=== PATIENT | female | born 1990 | race Caucasian/White ===

== ENCOUNTER 2017-11-30 07:00 | Inpatient (IN) | payer BC ==
[2017-11-30] MEDS ORDERED: Lactated Ringers 1,000 ML IV ONE (07:36)
[2017-11-30] MEDS ORDERED: Misoprostol 200 MCG Tab PO PRN (08:02)
[2017-11-30] MEDS ORDERED: Nalbuphine 10 MG/1 ML Vial IVPUSH PRN (08:02)
[2017-11-30] MEDS ORDERED: Sodium Chloride 0.9% 2.5 ML Syringe FLUSH PRN (08:02)
[2017-11-30] MEDS ORDERED: Lidocaine 1% 50 ML MDV INJECT PRN (08:02)
[2017-11-30] MEDS ORDERED: Sodium Chloride 0.9% 10 ML Syringe FLUSH PRN (08:02)
[2017-11-30] MEDS ORDERED: Butorphanol 1 MG/ML SDV IVPUSH PRN (08:02)
[2017-11-30] MEDS ORDERED: Carboprost Tromethamine 250 MCG/1 ML Amp IM PRN (08:02)
[2017-11-30] MEDS ORDERED: Water For Irrigation,Sterile 1,000 ML Container IRR PRN (08:02)
[2017-11-30] MEDS ORDERED: Tranexamic Acid 1,000 MG in Sodium Chloride 0.9% 100 ML IV PRN (08:02)
[2017-11-30] MEDS ORDERED: Methylergonovine 0.2 MG/1 ML Amp IM PRN (08:02)
[2017-11-30] MEDS ORDERED: Oxytocin/0.9 % Sodium Chloride 30 UNIT/500 ML BAG IV SCH (08:15)
[2017-11-30 08:50] LABS: CHLORIDE,CL 103 mmol/L (98-107); SODIUM,NA 135 mmol/L (136-145)
[2017-11-30] MEDS: Lactated Ringers 1,000 ML IV SCH ×4 (09:09→13:33)
[2017-11-30] MEDS ORDERED: Ondansetron 4 MG/2 ML SDV IVPUSH PRN (10:57)
--- NOTE | 2017-11-30 11:26 | PCM.PREANE ---
Preanesthetic Assessment - Anesthesia/Transfusion/Family Hx Anesthesia History: Prior Anesthesia Without Reaction Family History of Anesthesia Reaction: No Transfusion History: No Prior Transfusion(s) - Review of Systems General: No Symptoms Pulmonary: No Symptoms Cardiovascular: No Symptoms Gastrointestinal: No Symptoms Neurological: No Symptoms Other: Reports: None - Physical Assessment Height: 5 ft 6 in Weight: 117.027 kg ASA Class: 2 Mental Status: Alert & Oriented x3 Airway Class: Mallampati = 2 Dentition: Reports: Normal Dentition Thyro-Mental Finger Breadths: 3 Mouth Opening Finger Breadths: 3 ROM/Head Extension: Full Lungs: Clear to Auscultation, Normal Respiratory Effort Cardiovascular: Regular Rate, Regular Rhythm - Lab Values: Laboratory Last Values WBC 10.23 K/uL (4.0-11.0) 11/30/17 08:17 RBC 4.01 M/uL (4.30-5.90) L 11/30/17 08:17 Hgb 12.5 g/dL (12.0-16.0) 11/30/17 08:17 Hct 36.1 % (36.0-46.0) 11/30/17 08:17 MCV 90.0 fL (80.0-98.0) 11/30/17 08:17 MCH 31.2 pg (27.0-32.0) 11/30/17 08:17 MCHC 34.6 g/dL (31.0-37.0) 11/30/17 08:17 RDW Std Deviation 46.6 fl (28.0-62.0) 11/30/17 08:17 RDW Coeff of Nova 14 % (11.0-15.0) 11/30/17 08:17 Plt Count 241 K/uL (150-400) 11/30/17 08:17 MPV 9.70 fL (7.40-12.00) 11/30/17 08:17 Nucleated RBC % 0.0 /100WBC 11/30/17 08:17 Nucleated RBCs # 0 K/uL 11/30/17 08:17 Sodium 135 mmol/L (136-145) L 11/30/17 08:17 Potassium 4.0 mmol/L (3.5-5.1) 11/30/17 08:17 Chloride 103 mmol/L (98-107) 11/30/17 08:17 Carbon Dioxide 20.8 mmol/L (21.0-32.0) L 11/30/17 08:17 BUN 6 mg/dL (7.0-18.0) L 11/30/17 08:17 Creatinine 0.6 mg/dL (0.6-1.0) 11/30/17 08:17 Est Cr Clr Drug Dosing 130.68 mL/min 11/30/17 08:17 Estimated GFR (MDRD) > 60.0 ml/min 11/30/17 08:17 Glucose 95 mg/dL (74-106) 11/30/17 08:17 Calcium 9.0 mg/dL (8.5-10.1) 11/30/17 08:17 Total Bilirubin 0.3 mg/dL (0.2-1.0) 11/30/17 08:17 AST 14 IU/L (15-37) L 11/30/17 08:17 ALT 15 IU/L (14-63) 11/30/17 08:17 Alkaline Phosphatase 135 U/L (46-116) H 11/30/17 08:17 Total Protein 6.5 g/dL (6.4-8.2) 11/30/17 08:17 Albumin 2.8 g/dL (3.4-5.0) L 11/30/17 08:17 Globulin 3.7 g/dL (2.0-3.5) H 11/30/17 08:17 Albumin/Globulin Ratio 0.8 (1.3-2.8) L 11/30/17 08:17 Urine Color YELLOW 11/30/17 08:20 Urine Appearance CLEAR 11/30/17 08:20 Urine pH 6.0 (5.0-8.0) 11/30/17 08:20 Ur Specific [place] 1.015 (1.001-1.035) 11/30/17 08:20 Urine Protein NEGATIVE mg/dL (NEGATIVE) 11/30/17 08:20 Urine Glucose (UA) NEGATIVE mg/dL (NEGATIVE) 11/30/17 08:20 Urine Ketones NEGATIVE mg/dL (NEGATIVE) 11/30/17 08:20 Urine Occult Blood NEGATIVE (NEGATIVE) 11/30/17 08:20 Urine Nitrite NEGATIVE (NEGATIVE) 11/30/17 08:20 Urine Bilirubin NEGATIVE (NEGATIVE) 11/30/17 08:20 Urine Urobilinogen 0.2 EU/dL (<2.0) 11/30/17 08:20 Ur Leukocyte Esterase NEGATIVE (NEGATIVE) 11/30/17 08:20 Blood Type O POSITIVE 11/30/17 08:17 Antibody Screen NEGATIVE 11/30/17 08:17 - Allergies Allergies/Adverse Reactions: Allergies Allergy/AdvReac Type Severity Reaction Status Date / Time No Known Allergies Allergy Verified 11/30/17 07:17 - Acknowledgements Anesthesia Type Planned: Epidural Pt an Appropriate Candidate for the Planned Anesthesia: Yes Alternatives and Risks of Anesthesia Discussed w Pt/Guardian: Yes Pt/Guardian Understands and Agrees with Anesthesia Plan: Yes PreAnesthesia Questionnaire - Past Health History Medical/Surgical History: Denies Medical/Surgical History HEENT History: Reports: Impaired Vision, Other (See Below) Other HEENT History: wears contacts Cardiovascular History: Reports: None Respiratory History: Reports: None Gastrointestinal History: Reports: GERD Genitourinary History: Reports: None 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): Musculoskeletal History: Reports: None Neurological History: Reports: None Psychiatric History: Reports: Anxiety Endocrine/Metabolic History: Reports: Obesity/BMI 30+ Hematologic History: Reports: Anemia Immunologic History: Reports: None - Past Surgical History HEENT Surgical History: Reports: Oral Surgery, Tonsillectomy, Other (See Below) Other HEENT Surgeries/Procedures: wisdom tooth extraction - SUBSTANCE USE Smoking Status *Q: Former Smoker Tobacco Use Within Last Twelve Months: No Recreational Drug Use History: No - HOME MEDS Home Medications: Home Meds Vit W-Ca,Fe,FA(<1 mg) [ Vitamins] 1 tab PO DAILY 11/30/17 [ History] - CURRENT (IN HOUSE) MEDS Current Meds: Current Medications Butorphanol Tartrate (Stadol) 1 mg IVPUSH Q1H PRN PRN Reason: Pain Last Admin: 11/30/17 11:02 Dose: 1 mg Carboprost Tromethamine (Hemabate Ds) 250 mcg IM ASDIRECTED PRN PRN Reason: Post Hemorrhage Lactated Ringer's (Ringers, Lactated) 1,000 mls @ 150 mls/hr IV ASDIRECTED [facility] Last Admin: 11/30/17 11:04 Dose: 150 mls/hr Oxytocin/Sodium Chloride (Oxytocin 30 Unit/500 Ml-Ns) 30 unit in 500 mls @ 999 mls/hr IV TITRATE [facility] Tranexamic Acid 1,000 mg/ (Sodium Chloride) 110 mls @ 660 mls/hr IV ONETIME PRN PRN Reason: Bleeding Lidocaine HCl (Xylocaine 1%) 50 ml INJECT ONETIME PRN PRN Reason: Laceration repair Methylergonovine Maleate (Methergine) 0.2 mg IM ASDIRECTED PRN PRN Reason: Post Hemorrhage Misoprostol (Cytotec) 200 mcg PO ONETIME PRN PRN Reason: Post Hemorrhage Nalbuphine HCl (Nubain) 10 mg IVPUSH Q1H PRN PRN Reason: Pain (severe 7-10) Ondansetron HCl (Zofran) 4 mg IVPUSH Q4H PRN PRN Reason: Nausea/Vomiting Sodium Chloride (Saline Flush) 10 ml FLUSH ASDIRECTED PRN PRN Reason: Keep Vein Open Sodium Chloride (Saline Flush) 2.5 ml FLUSH ASDIRECTED PRN PRN Reason: Keep Vein Open Sterile Water (Sterile Water For Irrigation) 1,000 ml IRR ASDIRECTED PRN PRN Reason: delivery Discontinued Medications Lactated Ringer's (Ringers, Lactated) 1,000 mls @ 999 mls/hr IV .BOLUS ONE Stop: 11/30/17 08:36 Last Admin: 11/30/17 07:45 Dose: 999 mls/hr
[2017-11-30] MEDS ORDERED: Acetaminophen 500 MG Tab PO ONE (15:08)
[2017-11-30] MEDS ORDERED: Docusate Sodium 100 MG Cap PO PRN (18:53)
[2017-11-30] MEDS ORDERED: oxyCODONE 5 MG Tab PO PRN (18:53)
[2017-11-30] MEDS ORDERED: Lanolin 100% Cream 7 GM Tube TOP PRN (18:53)
[2017-11-30] MEDS ORDERED: Benzocaine/Menthol 20%-0.5% Spray 78 GM Cannister TOP PRN (18:53)
[2017-11-30] MEDS ORDERED: Witch Hazel Medicated Pads 40/Jar TOP PRN (18:53)
[2017-11-30] MEDS ORDERED: Bisacodyl 10 MG Supp RECTAL PRN (18:53)
[2017-11-30] MEDS ORDERED: Aluminum Hydroxide/Magnesium Hydroxide/Simethicone Susp 30 ML Cup PO PRN (18:53)
[2017-11-30] MEDS ORDERED: Ibuprofen 400 MG Tab PO PRN (18:53)
[2017-11-30] MEDS ORDERED: Acetaminophen 500 MG Tab PO PRN (18:53)
--- NOTE | 2017-11-30 18:58 | PCM.DEL ---
L & D Note - General Info Date of Service: 11/30/17 Mother's Due Date: 11/29/17 - Delivery Note Labor: Spontaneous Delivery Outcome: Livebirth Infant Delivery Method: Spontaneous Vaginal Delivery-Single Presentation: Left Occiput Anterior (ELIZABETH) Nuchal Cord: None Anesthesia Type: Epidural Amniotic Fluid Description: Clear Episiotomy Type: None Laceration: None Placenta: Intact, Spontaneous Cord: 3 Vessels [place]: Bulb Syringe Provider: Megan Haney Score 1 min: 9 Score 5 min: 9 - General Info Date of Service: 11/30/17 - Patient Data Weight - Most Recent: 117.027 kg Lab Results Last 24 Hours: Laboratory Results - last 24 hr 11/30/17 11/30/17 11/30/17 Range/Units 08:17 08:17 08:17 WBC 10.23 (4.0-11.0) K/uL RBC 4.01 L (4.30-5.90) M/uL Hgb 12.5 (12.0-16.0) g/dL Hct 36.1 (36.0-46.0) % MCV 90.0 (80.0-98.0) fL MCH 31.2 (27.0-32.0) pg MCHC 34.6 (31.0-37.0) g/dL RDW Std Deviation 46.6 (28.0-62.0) fl RDW Coeff of Nova 14 (11.0-15.0) % Plt Count 241 (150-400) K/uL MPV 9.70 (7.40-12.00) fL Nucleated RBC % 0.0 /100WBC Nucleated RBCs # 0 K/uL Sodium 135 L (136-145) mmol/L Potassium 4.0 (3.5-5.1) mmol/L Chloride 103 (98-107) mmol/L Carbon Dioxide 20.8 L (21.0-32.0) mmol/L BUN 6 L (7.0-18.0) mg/dL Creatinine 0.6 (0.6-1.0) mg/dL Est Cr Clr Drug Dosing 130.68 mL/min Estimated GFR (MDRD) > 60.0 ml/min Glucose 95 (74-106) mg/dL Calcium 9.0 (8.5-10.1) mg/dL Total Bilirubin 0.3 (0.2-1.0) mg/dL AST 14 L (15-37) IU/L ALT 15 (14-63) IU/L Alkaline Phosphatase 135 H (46-116) U/L Total Protein 6.5 (6.4-8.2) g/dL Albumin 2.8 L (3.4-5.0) g/dL Globulin 3.7 H (2.0-3.5) g/dL Albumin/Globulin Ratio 0.8 L (1.3-2.8) Urine Color Urine Appearance Urine pH (5.0-8.0) Ur Specific [place] (1.001-1.035) Urine Protein (NEGATIVE) mg/dL Urine Glucose (UA) (NEGATIVE) mg/dL Urine Ketones (NEGATIVE) mg/dL Urine Occult Blood (NEGATIVE) Urine Nitrite (NEGATIVE) Urine Bilirubin (NEGATIVE) Urine Urobilinogen (<2.0) EU/dL Ur Leukocyte Esterase (NEGATIVE) Blood Type O POSITIVE Antibody Screen NEGATIVE 11/30/17 Range/Units 08:20 WBC (4.0-11.0) K/uL RBC (4.30-5.90) M/uL Hgb (12.0-16.0) g/dL Hct (36.0-46.0) % MCV (80.0-98.0) fL MCH (27.0-32.0) pg MCHC (31.0-37.0) g/dL RDW Std Deviation (28.0-62.0) fl RDW Coeff of Nova (11.0-15.0) % Plt Count (150-400) K/uL MPV (7.40-12.00) fL Nucleated RBC % /100WBC Nucleated RBCs # K/uL Sodium (136-145) mmol/L Potassium (3.5-5.1) mmol/L Chloride (98-107) mmol/L Carbon Dioxide (21.0-32.0) mmol/L BUN (7.0-18.0) mg/dL Creatinine (0.6-1.0) mg/dL Est Cr Clr Drug Dosing mL/min Estimated GFR (MDRD) ml/min Glucose (74-106) mg/dL Calcium (8.5-10.1) mg/dL Total Bilirubin (0.2-1.0) mg/dL AST (15-37) IU/L ALT (14-63) IU/L Alkaline Phosphatase (46-116) U/L Total Protein (6.4-8.2) g/dL Albumin (3.4-5.0) g/dL Globulin (2.0-3.5) g/dL Albumin/Globulin Ratio (1.3-2.8) Urine Color YELLOW Urine Appearance CLEAR Urine pH 6.0 (5.0-8.0) Ur Specific [place] 1.015 (1.001-1.035) Urine Protein NEGATIVE (NEGATIVE) mg/dL Urine Glucose (UA) NEGATIVE (NEGATIVE) mg/dL Urine Ketones NEGATIVE (NEGATIVE) mg/dL Urine Occult Blood NEGATIVE (NEGATIVE) Urine Nitrite NEGATIVE (NEGATIVE) Urine Bilirubin NEGATIVE (NEGATIVE) Urine Urobilinogen 0.2 (<2.0) EU/dL Ur Leukocyte Esterase NEGATIVE (NEGATIVE) Blood Type Antibody Screen Med Orders - Current: Current Medications Acetaminophen (Tylenol Extra Strength) 500 mg PO Q4H PRN PRN Reason: Pain Acetaminophen (Tylenol Extra Strength) 1,000 mg PO Q4H PRN PRN Reason: Pain Al Hydroxide/Mg Hydroxide (Mag-Al Plus) 30 ml PO Q8H PRN PRN Reason: Heartburn Benzocaine/Menthol (Dermoplast Pain Relief 20%-0.5% [place]) 78 gm TOP ASDIRECTED PRN PRN Reason: Perineal Comfort Measure Bisacodyl (Dulcolax) 10 mg RECTAL ONETIME PRN PRN Reason: Constipation Carboprost Tromethamine (Hemabate Ds) 250 mcg IM ASDIRECTED PRN PRN Reason: Post Hemorrhage Docusate Sodium (Colace) 100 mg PO BID PRN PRN Reason: Constipation Emollient Ointment (Lansinoh Hpa) 0 gm TOP ASDIRECTED PRN PRN Reason: Sore Nipples Lactated Ringer's (Ringers, Lactated) 1,000 mls @ 150 mls/hr IV ASDIRECTED [facility] Last Admin: 11/30/17 13:33 Dose: 150 mls/hr Oxytocin/Sodium Chloride (Oxytocin 30 Unit/500 Ml-Ns) 30 unit in 500 mls @ 999 mls/hr IV TITRATE [facility] Tranexamic Acid 1,000 mg/ (Sodium Chloride) 110 mls @ 660 mls/hr IV ONETIME PRN PRN Reason: Bleeding Ibuprofen (Motrin) 400 mg PO Q4H PRN PRN Reason: Pain Ibuprofen (Motrin) 800 mg PO Q6H PRN PRN Reason: Pain Methylergonovine Maleate (Methergine) 0.2 mg IM ASDIRECTED PRN PRN Reason: Post Hemorrhage Misoprostol (Cytotec) 200 mcg PO ONETIME PRN PRN Reason: Post Hemorrhage Ondansetron HCl (Zofran) 4 mg IVPUSH Q4H PRN PRN Reason: Nausea/Vomiting Last Admin: 11/30/17 11:27 Dose: 4 mg Oxycodone HCl (Oxycodone) 5 mg PO Q2H PRN PRN Reason: Pain Sodium Chloride (Saline Flush) 10 ml FLUSH ASDIRECTED PRN PRN Reason: Keep Vein Open Sodium Chloride (Saline Flush) 2.5 ml FLUSH ASDIRECTED PRN PRN Reason: Keep Vein Open Witch [place] (Tucks) 1 pad TOP ASDIRECTED PRN PRN Reason: comfort care Discontinued Medications Acetaminophen (Tylenol Extra Strength) 1,000 mg PO ONETIME ONE Stop: 11/30/17 15:09 Last Admin: 11/30/17 15:19 Dose: 1,000 mg Butorphanol Tartrate (Stadol) 1 mg IVPUSH Q1H PRN PRN Reason: Pain Last Admin: 11/30/17 11:02 Dose: 1 mg Lactated Ringer's (Ringers, Lactated) 1,000 mls @ 999 mls/hr IV .BOLUS ONE Stop: 11/30/17 08:36 Last Admin: 11/30/17 07:45 Dose: 999 mls/hr Fentanyl/Bupivacaine HCl (Nvagmkjh-Unzhx-Uv 2 Mcg/Ml-0.125%) Confirm Administered Dose 100 mls @ as directed EP .STK-MED ONE Stop: 11/30/17 12:01 Last Admin: 11/30/17 14:44 Dose: Not Given Lidocaine HCl (Xylocaine 1%) 50 ml INJECT ONETIME PRN PRN Reason: Laceration repair Nalbuphine HCl (Nubain) 10 mg IVPUSH Q1H PRN PRN Reason: Pain (severe 7-10) Sterile Water (Sterile Water For Irrigation) 1,000 ml IRR ASDIRECTED PRN PRN Reason: delivery - Problem List & Annotations (1) Vaginal delivery SNOMED Code(s): 029134075 Code(s): O80 - ENCOUNTER FOR FULL-TERM UNCOMPLICATED DELIVERY Status: Acute Current Visit: Yes - Problem List Review Problem List Initiated/Reviewed/Updated: Yes - My Orders Last 24 Hours: My Active Orders 11/30/17 07:19 Patient Status [ADT] Routine Non Stress Test [RC] PER UNIT ROUTINE Up ad Jolene [RC] ASDIRECTED Vaginal Exam [RC] Click to Edit Vital Signs [RC] PER UNIT ROUTINE Resuscitation Status Routine 11/30/17 08:02 Heart Tones [RC] CONTINUOUS Non Stress Test [RC] PER UNIT ROUTINE May Shower [RC] ASDIRECTED Notify Provider [RC] PRN Carboprost Tromethamine [Hemabate DS] 250 mcg IM ASDIRECTED PRN Methylergonovine [Methergine] 0.2 mg IM ASDIRECTED PRN Sodium Chloride 0.9% [Saline Flush] 10 ml FLUSH ASDIRECTED PRN Sodium Chloride 0.9% [Saline Flush] 2.5 ml FLUSH ASDIRECTED PRN Tranexamic Acid [Cyklokapron] 1,000 mg Sodium Chloride 0.9% [Normal Saline] 100 ml IV ONETIME miSOPROStol [Cytotec] 200 mcg PO ONETIME PRN Peripheral IV Insertion Adult [OM.PC] Routine 11/30/17 08:15 Lactated Ringers [Ringers, Lactated] 1,000 ml IV ASDIRECTED Oxytocin/0.9 % Sodium Chloride [Oxytocin 30 Unit/500 ML-NS] 30 unit in 500 ml IV TITRATE 11/30/17 10:57 Ondansetron [Zofran] 4 mg IVPUSH Q4H PRN 11/30/17 18:53 Patient Status [ADT] Routine May Shower [RC] ASDIRECTED Up ad Jolene [RC] ASDIRECTED Vital Signs [RC] PER UNIT ROUTINE BLOOD GAS ARTERIAL UMBILICAL [BG] Urgent BLOOD GAS VENOUS UMBILICAL [BG] Urgent Acetaminophen [Tylenol Extra Strength] 1,000 mg PO Q4H PRN Acetaminophen [Tylenol Extra Strength] 500 mg PO Q4H PRN Alum Hydrox/Mag Hydrox/[place]eth [Mag-Al Plus] 30 ml PO Q8H PRN Benzocaine/Menthol [Dermoplast Pain Relief 20%-0.5% [place]] 78 gm TOP ASDIRECTED PRN Bisacodyl [Dulcolax] 10 mg RECTAL ONETIME PRN Docusate Sodium [Colace] 100 mg PO BID PRN Ibuprofen [Motrin] 400 mg PO Q4H PRN Ibuprofen [Motrin] 800 mg PO Q6H PRN Lanolin [Lansinoh HPA] See Dose Instructions TOP ASDIRECTED PRN Witch [place] [Tucks] 1 pad TOP ASDIRECTED PRN oxyCODONE 5 mg PO Q2H PRN Assess Lochia [WOMSER] Per Unit Routine Assess Uterine Involution [WOMSER] Per Unit Routine Ice Therapy [OM.PC] Per Unit Routine Perineal Care [OM.PC] Per Unit Routine Peripheral IV Discontinue [OM.PC] Routine Sitz Bath [OM.PC] Per Unit Routine 11/30/17 Dinner Regular Diet [DIET] 12/01/17 05:11 HEMOGLOBIN/HEMATOCRIT,HH [HEME] Timed
[2017-11-30] MEDS: Acetaminophen 500 MG Tab PO PRN (19:20)
--- NOTE | 2017-11-30 19:40 | PCM48HPAN ---
Post Anesthesia Note - EVALUATION WITHIN 48HRS OF ANESTHETIC Vital Signs in Normal Range: Yes Patient Participated in Evaluation: Yes Respiratory Function Stable: Yes Airway Patent: Yes Cardiovascular Function Stable: Yes Hydration Status Stable: Yes Pain Control Satisfactory: Yes Nausea and Vomiting Control Satisfactory: Yes Mental Status Recovered: Yes
[2017-11-30] MEDS: Ibuprofen 800 MG Tab PO PRN (22:27)
--- NOTE | 2017-12-01 01:46 | OR ---
SURGEON: Megan Haney M.D. DATE OF PROCEDURE: 11/30/2017 PREOPERATIVE DIAGNOSES: 1. 40 and 1 week intrauterine . 2. Active labor. POSTOPERATIVE DIAGNOSES: 1. 40 and 1 week intrauterine . 2. Active labor. PROCEDURE: Spontaneous vaginal delivery with intact perineum. ANESTHESIA: Epidural. ESTIMATED BLOOD LOSS: 300 mL. FINDINGS: Viable male, score 9 at one minute, 9 at five minutes. Weight of 4350 g. Spontaneous delivery, intact placenta, 3-vessel cord. DISPOSITION: Infant to nursery, mom in LDRP. PROCEDURE IN DETAIL: Melly is a 27-year-old, G2, P1, at 40 and 1 weeks' gestational age, who presented on the morning of 11/30/2017 with contractions. On initial exam, she was found to be 3 cm and with followup exam, she was found to be 4 to 5 cm, 90% effaced, -2 station. Amniotomy was performed. Clear fluid was returned. Initial heart tones were tachycardic in the 160s to 170s, however with IV fluid hydration, position on the left side with oxygen supplementation. heart tones baseline settled to the 130s to 140s with variability. Therefore, the oxygen was able to be discontinued. The patient continued to labor nicely and underwent regional anesthesia from epidural in the early afternoon. Shortly after, the patient progressed to 6 cm, then 8 cm. Shortly after 4:00 p.m., she was found to be 9 cm and with the hour progressed to complete and began pushing efforts, pushed readily and was able to push over the next hour to a +3 station. She was placed in modified dorsal lithotomy position, prepped and draped in the usual aseptic manner. Continued with pushing efforts, able to deliver 's head atraumatically and spontaneously, followed by anterior shoulder, posterior shoulder, and remainder of body. Infant's oropharynx and nares were bulb suctioned. Cord clamped x2 and cut. was handed off to his mother with attending nursing staff at her side. Cord arterial, cord venous, and cord blood sampling were obtained. Light suprapubic pressure was applied while the placenta was delivered spontaneously intact. Vigorous fundal uterine massage was then applied while 30 units of Pitocin was delivered in 1 L of IV fluid. Upon inspection of cervix, vaginal sidewalls, and perineum, these were found to be intact. The patient tolerated this procedure well. Uterus remained firm. The patient remained in LDRP. Sponge count is correct. to nursery. KATE / ANNMARIE /[id number]
--- NOTE | 2017-12-01 08:18 | PCM.PNPP ---
<Delmis Charles - Last Filed: 12/01/17 08:15> - General Info Date of Service: 12/01/17 Functional Status: Reports: Pain Controlled, Tolerating Diet, Ambulating, Urinating - Review of Systems General: Denies: Fever, Weakness, Fatigue Pulmonary: Denies: Shortness of Breath, Pleuritic Chest Pain, Cough Cardiovascular: Denies: Chest Pain, Palpitations, Dyspnea on Exertion Gastrointestinal: Denies: Abdominal Pain Genitourinary: Denies: Dysuria - General Info Date of Service: 12/01/17 - Patient Data Vital Signs - Most Recent: Last Vital Signs Temp 36.6 C 12/01/17 06:05 Pulse 104 H 12/01/17 06:05 Resp 18 12/01/17 06:05 BP 142/85 H 12/01/17 06:05 Pulse Ox 98 12/01/17 06:05 Weight - Most Recent: 117.027 kg Lab Results - Last 24 Hours: Laboratory Results - last 24 hr 11/30/17 11/30/17 11/30/17 Range/Units 08:17 08:17 08:17 WBC 10.23 (4.0-11.0) K/uL RBC 4.01 L (4.30-5.90) M/uL Hgb 12.5 (12.0-16.0) g/dL Hct 36.1 (36.0-46.0) % MCV 90.0 (80.0-98.0) fL MCH 31.2 (27.0-32.0) pg MCHC 34.6 (31.0-37.0) g/dL RDW Std Deviation 46.6 (28.0-62.0) fl RDW Coeff of Nova 14 (11.0-15.0) % Plt Count 241 (150-400) K/uL MPV 9.70 (7.40-12.00) fL Nucleated RBC % 0.0 /100WBC Nucleated RBCs # 0 K/uL Cord ABG pH (7.18-7.38) Cord ABG Base Excess (-10--2) Cord VBG pH (7.25-7.45) Cord VBG Base Excess (-10--2) Sodium 135 L (136-145) mmol/L Potassium 4.0 (3.5-5.1) mmol/L Chloride 103 (98-107) mmol/L Carbon Dioxide 20.8 L (21.0-32.0) mmol/L BUN 6 L (7.0-18.0) mg/dL Creatinine 0.6 (0.6-1.0) mg/dL Est Cr Clr Drug Dosing 130.68 mL/min Estimated GFR (MDRD) > 60.0 ml/min Glucose 95 (74-106) mg/dL Calcium 9.0 (8.5-10.1) mg/dL Total Bilirubin 0.3 (0.2-1.0) mg/dL AST 14 L (15-37) IU/L ALT 15 (14-63) IU/L Alkaline Phosphatase 135 H (46-116) U/L Total Protein 6.5 (6.4-8.2) g/dL Albumin 2.8 L (3.4-5.0) g/dL Globulin 3.7 H (2.0-3.5) g/dL Albumin/Globulin Ratio 0.8 L (1.3-2.8) Urine Color Urine Appearance Urine pH (5.0-8.0) Ur Specific [place] (1.001-1.035) Urine Protein (NEGATIVE) mg/dL Urine Glucose (UA) (NEGATIVE) mg/dL Urine Ketones (NEGATIVE) mg/dL Urine Occult Blood (NEGATIVE) Urine Nitrite (NEGATIVE) Urine Bilirubin (NEGATIVE) Urine Urobilinogen (<2.0) EU/dL Ur Leukocyte Esterase (NEGATIVE) Blood Type O POSITIVE Antibody Screen NEGATIVE 11/30/17 11/30/17 12/01/17 Range/Units 08:20 18:37 06:22 WBC (4.0-11.0) K/uL RBC (4.30-5.90) M/uL Hgb 12.1 (12.0-16.0) g/dL Hct 35.3 L (36.0-46.0) % MCV (80.0-98.0) fL MCH (27.0-32.0) pg MCHC (31.0-37.0) g/dL RDW Std Deviation (28.0-62.0) fl RDW Coeff of Nova (11.0-15.0) % Plt Count (150-400) K/uL MPV (7.40-12.00) fL Nucleated RBC % /100WBC Nucleated RBCs # K/uL Cord ABG pH 7.196 (7.18-7.38) Cord ABG Base Excess -7 (-10--2) Cord VBG pH 7.338 (7.25-7.45) Cord VBG Base Excess -6 (-10--2) Sodium (136-145) mmol/L Potassium (3.5-5.1) mmol/L Chloride (98-107) mmol/L Carbon Dioxide (21.0-32.0) mmol/L BUN (7.0-18.0) mg/dL Creatinine (0.6-1.0) mg/dL Est Cr Clr Drug Dosing mL/min Estimated GFR (MDRD) ml/min Glucose (74-106) mg/dL Calcium (8.5-10.1) mg/dL Total Bilirubin (0.2-1.0) mg/dL AST (15-37) IU/L ALT (14-63) IU/L Alkaline Phosphatase (46-116) U/L Total Protein (6.4-8.2) g/dL Albumin (3.4-5.0) g/dL Globulin (2.0-3.5) g/dL Albumin/Globulin Ratio (1.3-2.8) Urine Color YELLOW Urine Appearance CLEAR Urine pH 6.0 (5.0-8.0) Ur Specific [place] 1.015 (1.001-1.035) Urine Protein NEGATIVE (NEGATIVE) mg/dL Urine Glucose (UA) NEGATIVE (NEGATIVE) mg/dL Urine Ketones NEGATIVE (NEGATIVE) mg/dL Urine Occult Blood NEGATIVE (NEGATIVE) Urine Nitrite NEGATIVE (NEGATIVE) Urine Bilirubin NEGATIVE (NEGATIVE) Urine Urobilinogen 0.2 (<2.0) EU/dL Ur Leukocyte Esterase NEGATIVE (NEGATIVE) Blood Type Antibody Screen Med Orders - Current: Current Medications Acetaminophen (Tylenol Extra Strength) 500 mg PO Q4H PRN PRN Reason: Pain Acetaminophen (Tylenol Extra Strength) 1,000 mg PO Q4H PRN PRN Reason: Pain Last Admin: 11/30/17 19:20 Dose: 1,000 mg Al Hydroxide/Mg Hydroxide (Mag-Al Plus) 30 ml PO Q8H PRN PRN Reason: Heartburn Benzocaine/Menthol (Dermoplast Pain Relief 20%-0.5% [place]) 78 gm TOP ASDIRECTED PRN PRN Reason: Perineal Comfort Measure Last Admin: 11/30/17 22:31 Dose: 1 applic Bisacodyl (Dulcolax) 10 mg RECTAL ONETIME PRN PRN Reason: Constipation Carboprost Tromethamine (Hemabate Ds) 250 mcg IM ASDIRECTED PRN PRN Reason: Post Hemorrhage Docusate Sodium (Colace) 100 mg PO BID PRN PRN Reason: Constipation Emollient Ointment (Lansinoh Hpa) 0 gm TOP ASDIRECTED PRN PRN Reason: Sore Nipples Last Admin: 11/30/17 22:32 Dose: 1 appful Lactated Ringer's (Ringers, Lactated) 1,000 mls @ 150 mls/hr IV ASDIRECTED FAINA Last Admin: 11/30/17 13:33 Dose: 150 mls/hr Oxytocin/Sodium Chloride (Oxytocin 30 Unit/500 Ml-Ns) 30 unit in 500 mls @ 999 mls/hr IV TITRATE [facility] Last Admin: 11/30/17 18:38 Dose: 999 mls/hr Tranexamic Acid 1,000 mg/ (Sodium Chloride) 110 mls @ 660 mls/hr IV ONETIME PRN PRN Reason: Bleeding Ibuprofen (Motrin) 400 mg PO Q4H PRN PRN Reason: Pain Ibuprofen (Motrin) 800 mg PO Q6H PRN PRN Reason: Pain Last Admin: 11/30/17 22:27 Dose: 800 mg Methylergonovine Maleate (Methergine) 0.2 mg IM ASDIRECTED PRN PRN Reason: Post Hemorrhage Misoprostol (Cytotec) 200 mcg PO ONETIME PRN PRN Reason: Post Hemorrhage Ondansetron HCl (Zofran) 4 mg IVPUSH Q4H PRN PRN Reason: Nausea/Vomiting Last Admin: 11/30/17 11:27 Dose: 4 mg Oxycodone HCl (Oxycodone) 5 mg PO Q2H PRN PRN Reason: Pain Sodium Chloride (Saline Flush) 10 ml FLUSH ASDIRECTED PRN PRN Reason: Keep Vein Open Sodium Chloride (Saline Flush) 2.5 ml FLUSH ASDIRECTED PRN PRN Reason: Keep Vein Open Witch Mercy (Tucks) 1 pad TOP ASDIRECTED PRN PRN Reason: comfort care Last Admin: 11/30/17 22:32 Dose: 1 applic Discontinued Medications Acetaminophen (Tylenol Extra Strength) 1,000 mg PO ONETIME ONE Stop: 11/30/17 15:09 Last Admin: 11/30/17 15:19 Dose: 1,000 mg Butorphanol Tartrate (Stadol) 1 mg IVPUSH Q1H PRN PRN Reason: Pain Last Admin: 11/30/17 11:02 Dose: 1 mg Lactated Ringer's (Ringers, Lactated) 1,000 mls @ 999 mls/hr IV .BOLUS ONE Stop: 11/30/17 08:36 Last Admin: 11/30/17 07:45 Dose: 999 mls/hr Fentanyl/Bupivacaine HCl (Smrskuey-Osqrw-Jm 2 Mcg/Ml-0.125%) Confirm Administered Dose 100 mls @ as directed EP .STK-MED ONE Stop: 11/30/17 12:01 Last Admin: 11/30/17 14:44 Dose: Not Given Lidocaine HCl (Xylocaine 1%) 50 ml INJECT ONETIME PRN PRN Reason: Laceration repair Nalbuphine HCl (Nubain) 10 mg IVPUSH Q1H PRN PRN Reason: Pain (severe 7-10) Sterile Water (Sterile Water For Irrigation) 1,000 ml IRR ASDIRECTED PRN PRN Reason: delivery - Interaction Infant Disposition, : [place] to Nursery Infant Feeding: Encouraged to Breastfeed Support Person: , Mother - Recovery Exam Fundal Tone: Firm Fundal Level: At Umbilicus Fundal Placement: Midline Lochia Amount: Scant Lochia Color: Rubra/Red Perineum Description: Intact, Minimal Bruising/Swelling Bladder Status: Voiding - Exam General: Alert, Oriented Neck: Supple Lungs: Clear to Auscultation, Normal Respiratory Effort Cardiovascular: Regular Rate, Regular Rhythm GI/Abdominal Exam: Normal Bowel Sounds, Soft, Non-Tender, No Distention Extremities: Normal Inspection, Non-Tender, Normal Capillary Refill, Pedal Edema (trace) Skin: Warm, Intact Psy/Mental Status: Alert - Problem List & Annotations (1) Vaginal delivery SNOMED Code(s): 443106550 Code(s): O80 - ENCOUNTER FOR FULL-TERM UNCOMPLICATED DELIVERY Status: Acute Current Visit: Yes - Problem List Review Problem List Initiated/Reviewed/Updated: Yes - Assessment Assessment:: PPD #1 s/p . Encouraged to breast feed. Minimal pain and lochia. Discharge home today. - Plan Plan:: Discharge instructions reviewed. Pelvic rest for 6 weeks. Continue PNV while breast feeding. Can use OTC ibuprofen/tylenol as needed for pain. Instructed patient to call if she develops fever greater than 101 or bleeding through a large pad an hour. F/U with [facility] in in 6 weeks. <Megan Haney - Last Filed: 12/01/17 08:55> - Patient Data Vital Signs - Most Recent: Last Vital Signs Temp 36.6 C 12/01/17 06:05 Pulse 104 H 12/01/17 06:05 Resp 18 12/01/17 06:05 BP 142/85 H 12/01/17 06:05 Pulse Ox 98 12/01/17 06:05 Lab Results - Last 24 Hours: Laboratory Results - last 24 hr 11/30/17 11/30/17 11/30/17 Range/Units 08:17 08:17 18:37 Hgb (12.0-16.0) g/dL Hct (36.0-46.0) % Cord ABG pH 7.196 (7.18-7.38) Cord ABG Base Excess -7 (-10--2) Cord VBG pH 7.338 (7.25-7.45) Cord VBG Base Excess -6 (-10--2) Sodium 135 L (136-145) mmol/L Potassium 4.0 (3.5-5.1) mmol/L Chloride 103 (98-107) mmol/L Carbon Dioxide 20.8 L (21.0-32.0) mmol/L BUN 6 L (7.0-18.0) mg/dL Creatinine 0.6 (0.6-1.0) mg/dL Est Cr Clr Drug Dosing 130.68 mL/min Estimated GFR (MDRD) > 60.0 ml/min Glucose 95 (74-106) mg/dL Calcium 9.0 (8.5-10.1) mg/dL Total Bilirubin 0.3 (0.2-1.0) mg/dL AST 14 L (15-37) IU/L ALT 15 (14-63) IU/L Alkaline Phosphatase 135 H (46-116) U/L Total Protein 6.5 (6.4-8.2) g/dL Albumin 2.8 L (3.4-5.0) g/dL Globulin 3.7 H (2.0-3.5) g/dL Albumin/Globulin Ratio 0.8 L (1.3-2.8) Blood Type O POSITIVE Antibody Screen NEGATIVE 12/01/17 Range/Units 06:22 Hgb 12.1 (12.0-16.0) g/dL Hct 35.3 L (36.0-46.0) % Cord ABG pH (7.18-7.38) Cord ABG Base Excess (-10--2) Cord VBG pH (7.25-7.45) Cord VBG Base Excess (-10--2) Sodium (136-145) mmol/L Potassium (3.5-5.1) mmol/L Chloride (98-107) mmol/L Carbon Dioxide (21.0-32.0) mmol/L BUN (7.0-18.0) mg/dL Creatinine (0.6-1.0) mg/dL Est Cr Clr Drug Dosing mL/min Estimated GFR (MDRD) ml/min Glucose (74-106) mg/dL Calcium (8.5-10.1) mg/dL Total Bilirubin (0.2-1.0) mg/dL AST (15-37) IU/L ALT (14-63) IU/L Alkaline Phosphatase (46-116) U/L Total Protein (6.4-8.2) g/dL Albumin (3.4-5.0) g/dL Globulin (2.0-3.5) g/dL Albumin/Globulin Ratio (1.3-2.8) Blood Type Antibody Screen Med Orders - Current: Current Medications Acetaminophen (Tylenol Extra Strength) 500 mg PO Q4H PRN PRN Reason: Pain Acetaminophen (Tylenol Extra Strength) 1,000 mg PO Q4H PRN PRN Reason: Pain Last Admin: 11/30/17 19:20 Dose: 1,000 mg Al Hydroxide/Mg Hydroxide (Mag-Al Plus) 30 ml PO Q8H PRN PRN Reason: Heartburn Benzocaine/Menthol (Dermoplast Pain Relief 20%-0.5% [place]) 78 gm TOP ASDIRECTED PRN PRN Reason: Perineal Comfort Measure Last Admin: 11/30/17 22:31 Dose: 1 applic Bisacodyl (Dulcolax) 10 mg RECTAL ONETIME PRN PRN Reason: Constipation Carboprost Tromethamine (Hemabate Ds) 250 mcg IM ASDIRECTED PRN PRN Reason: Post Hemorrhage Docusate Sodium (Colace) 100 mg PO BID PRN PRN Reason: Constipation Emollient Ointment (Lansinoh Hpa) 0 gm TOP ASDIRECTED PRN PRN Reason: Sore Nipples Last Admin: 11/30/17 22:32 Dose: 1 appful Lactated Ringer's (Ringers, Lactated) 1,000 mls @ 150 mls/hr IV ASDIRECTED FAINA Last Admin: 11/30/17 13:33 Dose: 150 mls/hr Oxytocin/Sodium Chloride (Oxytocin 30 Unit/500 Ml-Ns) 30 unit in 500 mls @ 999 mls/hr IV TITRATE [facility] Last Admin: 11/30/17 18:38 Dose: 999 mls/hr Tranexamic Acid 1,000 mg/ (Sodium Chloride) 110 mls @ 660 mls/hr IV ONETIME PRN PRN Reason: Bleeding Ibuprofen (Motrin) 400 mg PO Q4H PRN PRN Reason: Pain Ibuprofen (Motrin) 800 mg PO Q6H PRN PRN Reason: Pain Last Admin: 11/30/17 22:27 Dose: 800 mg Methylergonovine Maleate (Methergine) 0.2 mg IM ASDIRECTED PRN PRN Reason: Post Hemorrhage Misoprostol (Cytotec) 200 mcg PO ONETIME PRN PRN Reason: Post Hemorrhage Ondansetron HCl (Zofran) 4 mg IVPUSH Q4H PRN PRN Reason: Nausea/Vomiting Last Admin: 11/30/17 11:27 Dose: 4 mg Oxycodone HCl (Oxycodone) 5 mg PO Q2H PRN PRN Reason: Pain Sodium Chloride (Saline Flush) 10 ml FLUSH ASDIRECTED PRN PRN Reason: Keep Vein Open Sodium Chloride (Saline Flush) 2.5 ml FLUSH ASDIRECTED PRN PRN Reason: Keep Vein Open Witch Mercy (Tucks) 1 pad TOP ASDIRECTED PRN PRN Reason: comfort care Last Admin: 11/30/17 22:32 Dose: 1 applic Discontinued Medications Acetaminophen (Tylenol Extra Strength) 1,000 mg PO ONETIME ONE Stop: 11/30/17 15:09 Last Admin: 11/30/17 15:19 Dose: 1,000 mg Butorphanol Tartrate (Stadol) 1 mg IVPUSH Q1H PRN PRN Reason: Pain Last Admin: 11/30/17 11:02 Dose: 1 mg Lactated Ringer's (Ringers, Lactated) 1,000 mls @ 999 mls/hr IV .BOLUS ONE Stop: 11/30/17 08:36 Last Admin: 11/30/17 07:45 Dose: 999 mls/hr Fentanyl/Bupivacaine HCl ([id number]-Jkifs-Wl 2 Mcg/Ml-0.125%) Confirm Administered Dose 100 mls @ as directed EP .STK-MED ONE Stop: 11/30/17 12:01 Last Admin: 11/30/17 14:44 Dose: Not Given Lidocaine HCl (Xylocaine 1%) 50 ml INJECT ONETIME PRN PRN Reason: Laceration repair Nalbuphine HCl (Nubain) 10 mg IVPUSH Q1H PRN PRN Reason: Pain (severe 7-10) Sterile Water (Sterile Water For Irrigation) 1,000 ml IRR ASDIRECTED PRN PRN Reason: delivery - Problem List & Annotations (1) Vaginal delivery SNOMED Code(s): 883003159 Code(s): O80 - ENCOUNTER FOR FULL-TERM UNCOMPLICATED DELIVERY Status: Acute Current Visit: Yes - My Orders Last 24 Hours: My Active Orders 11/30/17 08:00 Patient Status [ADT] Routine 11/30/17 08:02 Heart Tones [RC] CONTINUOUS Non Stress Test [RC] PER UNIT ROUTINE May Shower [RC] ASDIRECTED Notify Provider [RC] PRN Carboprost Tromethamine [Hemabate DS] 250 mcg IM ASDIRECTED PRN Methylergonovine [Methergine] 0.2 mg IM ASDIRECTED PRN Sodium Chloride 0.9% [Saline Flush] 10 ml FLUSH ASDIRECTED PRN Sodium Chloride 0.9% [Saline Flush] 2.5 ml FLUSH ASDIRECTED PRN Tranexamic Acid [Cyklokapron] 1,000 mg Sodium Chloride 0.9% [Normal Saline] 100 ml IV ONETIME miSOPROStol [Cytotec] 200 mcg PO ONETIME PRN Peripheral IV Insertion Adult [OM.PC] Routine 11/30/17 08:15 Lactated Ringers [Ringers, Lactated] 1,000 ml IV ASDIRECTED Oxytocin/0.9 % Sodium Chloride [Oxytocin 30 Unit/500 ML-NS] 30 unit in 500 ml IV TITRATE 11/30/17 10:57 Ondansetron [Zofran] 4 mg IVPUSH Q4H PRN 11/30/17 18:53 Patient Status [ADT] Routine May Shower [RC] ASDIRECTED Up ad Jolene [RC] ASDIRECTED Vital Signs [RC] PER UNIT ROUTINE Acetaminophen [Tylenol Extra Strength] 1,000 mg PO Q4H PRN Acetaminophen [Tylenol Extra Strength] 500 mg PO Q4H PRN Alum Hydrox/Mag Hydrox/Simeth [Mag-Al Plus] 30 ml PO Q8H PRN Benzocaine/Menthol [Dermoplast Pain Relief 20%-0.5% [place]] 78 gm TOP ASDIRECTED PRN Bisacodyl [Dulcolax] 10 mg RECTAL ONETIME PRN Docusate Sodium [Colace] 100 mg PO BID PRN Ibuprofen [Motrin] 400 mg PO Q4H PRN Ibuprofen [Motrin] 800 mg PO Q6H PRN Lanolin [Lansinoh HPA] See Dose Instructions TOP ASDIRECTED PRN Witch Mercy [Tucks] 1 pad TOP ASDIRECTED PRN oxyCODONE 5 mg PO Q2H PRN Assess Lochia [WOMSER] Per Unit Routine Assess Uterine Involution [WOMSER] Per Unit Routine Ice Therapy [OM.PC] Per Unit Routine Perineal Care [OM.PC] Per Unit Routine Peripheral IV Discontinue [OM.PC] Routine Sitz Bath [OM.PC] Per Unit Routine 11/30/17 Dinner Regular Diet [DIET] - Plan Plan:: Patient seen and examined--agree with above
[2017-12-01] MEDS: Ibuprofen 800 MG Tab PO PRN ×2 (10:04→19:23)
[2017-12-01] MEDS: Acetaminophen 500 MG Tab PO PRN (11:11)
[2017-12-01 20:05] VITALS: BP 131/77
== END 2017-12-01 21:20 | disposition home or self-care (01) | DRG 560 ==
LOC: MW.OBCHECK 07:00 → MW.OB 07:03 → MW.OBCHECK 08:00 → OBSVTOIN 18:37 → MW.OB 23:53
PROVIDERS: ADMIT Obstetrics & Gynecology; ATTEND Obstetrics & Gynecology
PROC: 10E0XZZ Delivery of Products of Conception, External Approach (ICD-10-PCS; principal; 2017-11-30)
PROC: 10907ZC Drainage of Amniotic Fluid, Therapeutic from Products of Conception, Via Natural or Artificial Opening (ICD-10-PCS; 2017-11-30)
PROC: 00HU33Z Insertion of Infusion Device into Spinal Canal, Percutaneous Approach (ICD-10-PCS; 2017-11-30)
DX: O80 Encounter for full-term uncomplicated delivery (principal); Z3A.40 40 weeks gestation of pregnancy; Z37.0 Single live birth
CPT/HCPCS: 36415; 51701; 51702; 59025; 59409; 80053; 81003; 82803; 85014; 85018; 85027; 86850; 86900; 86901; A9270-GY; J0595; J2405; J2590; J7120

== ENCOUNTER 2021-03-06 16:09 | Observation (INO) | payer BC, OTHER ==
[2021-03-06] MEDS ORDERED: Ondansetron 4 MG/2 ML SDV IVPUSH ONE (18:14)
[2021-03-06] MEDS ORDERED: Ketorolac 30 MG/ML SDV IVPUSH ONE (18:14)
--- NOTE | 2021-03-06 18:15 | EDM.PDOC ---
<Benjamín Nguyen - Last Filed: 03/06/21 18:12> ED HPI GENERAL MEDICAL PROBLEM - General Chief Complaint: Abdominal Pain Stated Complaint: POSSIBLE APPENDIX ISSUE Time Seen by Provider: 03/06/21 18:08 - History of Present Illness INITIAL COMMENTS - FREE TEXT/NARRATIVE: History of present illness: [] Patient has abdominal pain in the right epigastric area. She has had abdominal pain since 03 March. She had rather constant pain moderate severity in the right hypogastrium associated with nausea at the onset and lasted until yesterday. This morning she felt better but then it came back and it persists since. Nothing really makes it better or worse. She has no fever chills cough or upper respiratory symptoms. She has no dysuria. She has no constipation or diarrhea. She did not actually vomit. The pain something new for her and because it came back and it was persisting now she felt like she had get it checked out. She is on control pills. She has had 2 prior babies. Patient does not think she is exposed to any sexually transmitted disease and has no irregularity of her menses. She is not vaccinated for COVID- 19. Review of systems: As per history of present illness and below otherwise all systems reviewed and negative. Past medical history: As per history of present illness and as reviewed below otherwise noncontributory. Surgical history: As per history of present illness and as reviewed below otherwise noncontributory. Social history: No reported history of drug or alcohol abuse. Family history: As per history of present illness and as reviewed below otherwise noncontributory. Physical exam: Constitutional - well developed, well-nourished and in no acute distress HEENT - normocephalic, no evidence of trauma - external nose and mouth normal - no mass in neck and no JVD - mucosae moist EYES - full EOM, PERRL, no icterus - no evidence of inflammation, injection, or drainage Respiratory - no respiratory distress, equal bilateral expansion, lungs clear to auscultation and no abnormal lung sounds Cardiovascular - Regular Rhythm with S1 and S2 appreciated and no murmur, gallop or rub. GI -tender right hypogastrium and right upper quadrant. Slightly tender in epigastrium. No referred tenderness. No guard or rebound. Abdomen soft without distension or organomegaly - normal bowel sounds - no guard or rebound Musculoskeletal no gross deformity of long bones or joints - no tenderness, swelling or edema Neurologic - Alert and oriented times four - CN II-XII grossly intact - motor sensory and coordination symmetrically normal Psychiatric - appropriate mood and affect with normal thought content Hematologic - No petechiae or purpura - mucosa appropriate color and sclera not pale - normal nail bed color and refill Integument - no rash or evidence of trauma - normal turgor Diagnostics: [] Therapeutics: [] Impression: [] Plan: [] Definitive disposition and diagnosis as appropriate pending reevaluation and review of above. Abdomen Pain Score (Numeric/FACES): 6 - Related Data Allergies Allergy/AdvReac Type Severity Reaction Status Date / Time No Known Allergies Allergy Verified 03/06/21 16:36 Home Meds: Home Meds Vit Calc,Iron,Folic [ Vitamins] 1 tab PO DAILY 11/30/17 [History] Montelukast [Singulair] 10 mg PO DAILY 03/06/21 [History] Phentermine HCl 37.5 mg PO DAILY 03/06/21 [History] buPROPion [buPROPion XL] 150 mg PO 03/06/21 [History] Past Medical History - Past Health History Medical/Surgical History: Denies Medical/Surgical History HEENT History: Reports: Impaired Vision, Other (See Below) Other HEENT History: wears contacts Cardiovascular History: Reports: None Respiratory History: Reports: None Gastrointestinal History: Reports: GERD Genitourinary History: Reports: None 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: Musculoskeletal History: Reports: None Neurological History: Reports: None Psychiatric History: Reports: Anxiety Endocrine/Metabolic History: Reports: Obesity/BMI 30+ Hematologic History: Reports: Anemia Immunologic History: Reports: None - Past Surgical History HEENT Surgical History: Reports: Oral Surgery, Tonsillectomy, Other (See Below) Other HEENT Surgeries/Procedures: wisdom tooth extraction Social & Family History - Family History HEENT: Reports: Impaired Vision Cardiac: Reports: Hypertension, Other (See Below) Other Cardiac Family History: heart disease OBGYN: Reports: Neurological: Reports: CVA Psychiatric: Reports: Anxiety Endocrine/Metabolic: Reports: Diabetes, type II, Other (See Below) Other Endocrine/Metabolic Family History: thyroid disease Oncologic: Reports: Breast - Tobacco Use Tobacco Use Status *Q: Never Tobacco User - Caffeine Use Caffeine Use: Reports: None - Recreational Drug Use Recreational Drug Use: No ED ROS GENERAL - Review of Systems Review Of Systems: Comprehensive ROS is negative, except as noted in HPI. ED EXAM, GENERAL - Physical Exam Exam: See Below Free Text/Narrative:: My physical exam is in the HPI Departure - Departure Disposition: Refer to Observation Clinical Impression: Acute appendicitis - Discharge Information Referrals: Leena Cam DO [Primary Care Provider] - Forms: ED Department Discharge Sepsis Event Note (ED) - Evaluation Sepsis Screening Result: No Definite Risk <Markos Etienne - Last Filed: 03/06/21 20:44> Course - Vital Signs Last Recorded V/S: Last Vital Signs Temp 98.1 F 03/06/21 16:39 Pulse 101 H 03/06/21 16:39 Resp 20 03/06/21 16:39 BP 154/59 H 03/06/21 16:39 Pulse Ox 99 03/06/21 16:39 - Orders/Labs/Meds Orders: Active Orders 24 hr Category Date Time Status Patient Status [ADT] Routine ADT 03/06/21 20:15 Active CORONAVIRUS COVID-19 LUIS [MOLEC] Stat Lab 03/06/21 20:12 Received Piperacillin/Tazobactam [Piperacil-Tazobact] 4.5 gm Med 03/06/21 20:15 Active Sodium Chloride 0.9% [Normal Saline AdvBag] 100 ml IV ONETIME Sodium Chloride 0.9% [Normal Saline] 1,000 ml Med 03/06/21 18:45 Active IV ASDIRECTED Sodium Chloride 0.9% [Saline Flush] Med 03/06/21 18:38 Active 10 ml FLUSH ASDIRECTED PRN Sodium Chloride 0.9% [Saline Flush] Med 03/06/21 18:38 Active 2.5 ml FLUSH ASDIRECTED PRN Saline Lock Insert [OM.PC] Stat Oth 03/06/21 18:38 Ordered Medication Orders Sodium Chloride (Normal Saline) 1,000 mls @ 150 mls/hr IV ASDIRECTED FAINA Last Admin: 03/06/21 18:51 Dose: 150 mls/hr Documented by: LOULOU Piperacillin Sod/Tazobactam (Sod 4.5 gm/ Sodium Chloride) 100 mls @ 100 mls/hr IV ONETIME ONE Stop: 03/06/21 21:14 Sodium Chloride (Sodium Chloride 0.9% 10 Ml Syringe) 10 ml FLUSH ASDIRECTED PRN PRN Reason: Keep Vein Open Last Admin: 03/06/21 18:52 Dose: 10 ml Documented by: LOULOU Sodium Chloride (Sodium Chloride 0.9% 2.5 Ml Syringe) 2.5 ml FLUSH ASDIRECTED PRN PRN Reason: Keep Vein Open Last Admin: 03/06/21 18:51 Dose: 2.5 ml Documented by: LOULOU Labs: Laboratory Tests 03/06/21 03/06/21 03/06/21 Range/Units 17:50 17:50 18:07 WBC 8.10 (4.0-11.0) K/uL RBC 4.54 (4.30-5.90) M/uL Hgb 14.4 (12.0-16.0) g/dL Hct 42.2 (36.0-46.0) % MCV 93.0 (80.0-98.0) fL MCH 31.7 (27.0-32.0) pg MCHC 34.1 (31.0-37.0) g/dL RDW Std Deviation 43.8 (28.0-62.0) fl RDW Coeff of Nova 13 (11.0-15.0) % Plt Count 308 (150-400) K/uL MPV 9.50 (7.40-12.00) fL Neut % (Auto) 62.5 (48.0-80.0) % Lymph % (Auto) 28.6 (16.0-40.0) % [place] % (Auto) 6.8 (0.0-15.0) % Eos % (Auto) 1.7 (0.0-7.0) % Baso % (Auto) 0.4 (0.0-1.5) % Neut # (Auto) 5.1 (1.4-5.7) K/uL Lymph # (Auto) 2.3 (0.6-2.4) K/uL [place] # (Auto) 0.6 (0.0-0.8) K/uL Eos # (Auto) 0.1 (0.0-0.7) K/uL Baso # (Auto) 0.0 (0.0-0.1) K/uL Nucleated RBC % 0.0 /100WBC Nucleated RBCs # 0 K/uL Sodium (136-145) mmol/L Potassium (3.5-5.1) mmol/L Chloride (98-107) mmol/L Carbon Dioxide (21.0-32.0) mmol/L BUN (7.0-18.0) mg/dL Creatinine (0.6-1.0) mg/dL Est Cr Clr Drug Dosing mL/min Estimated GFR (MDRD) ml/min Glucose (74-106) mg/dL Calcium (8.5-10.1) mg/dL Total Bilirubin (0.2-1.0) mg/dL AST (15-37) IU/L ALT (14-63) IU/L Alkaline Phosphatase (46-116) U/L Total Protein (6.4-8.2) g/dL Albumin (3.4-5.0) g/dL Globulin (2.6-4.0) g/dL Albumin/Globulin Ratio (0.9-1.6) Lipase (73-393) U/L Urine Color YELLOW Urine Appearance CLEAR Urine pH 6.0 (5.0-8.0) Ur Specific [place] 1.010 (1.001-1.035) Urine Protein NEGATIVE (NEGATIVE) mg/dL Urine Glucose (UA) NEGATIVE (NEGATIVE) mg/dL Urine Ketones NEGATIVE (NEGATIVE) mg/dL Urine Occult Blood TRACE-INTACT H (NEGATIVE) Urine Nitrite NEGATIVE (NEGATIVE) Urine Bilirubin NEGATIVE (NEGATIVE) Urine Urobilinogen 0.2 (<2.0) EU/dL Ur Leukocyte Esterase TRACE H (NEGATIVE) Urine RBC 0-2 (0-2/HPF) Urine WBC 0-3 (0-5/HPF) Ur Epithelial Cells RARE (NONE-FEW) Urine Bacteria FEW (NEGATIVE) Urine HCG, Qual NEGATIVE (NEGATIVE) 03/06/21 Range/Units 18:07 WBC (4.0-11.0) K/uL RBC (4.30-5.90) M/uL Hgb (12.0-16.0) g/dL Hct (36.0-46.0) % MCV (80.0-98.0) fL MCH (27.0-32.0) pg MCHC (31.0-37.0) g/dL RDW Std Deviation (28.0-62.0) fl RDW Coeff of Nova (11.0-15.0) % Plt Count (150-400) K/uL MPV (7.40-12.00) fL Neut % (Auto) (48.0-80.0) % Lymph % (Auto) (16.0-40.0) % [place] % (Auto) (0.0-15.0) % Eos % (Auto) (0.0-7.0) % Baso % (Auto) (0.0-1.5) % Neut # (Auto) (1.4-5.7) K/uL Lymph # (Auto) (0.6-2.4) K/uL [place] # (Auto) (0.0-0.8) K/uL Eos # (Auto) (0.0-0.7) K/uL Baso # (Auto) (0.0-0.1) K/uL Nucleated RBC % /100WBC Nucleated RBCs # K/uL Sodium 143 (136-145) mmol/L Potassium 3.8 (3.5-5.1) mmol/L Chloride 102 (98-107) mmol/L Carbon Dioxide 28.1 (21.0-32.0) mmol/L BUN 9 (7.0-18.0) mg/dL Creatinine 0.7 (0.6-1.0) mg/dL Est Cr Clr Drug Dosing 109.01 mL/min Estimated GFR (MDRD) > 60.0 ml/min Glucose 95 (74-106) mg/dL Calcium 9.4 (8.5-10.1) mg/dL Total Bilirubin 0.2 (0.2-1.0) mg/dL AST 12 L (15-37) IU/L ALT 22 (14-63) IU/L Alkaline Phosphatase 65 (46-116) U/L Total Protein 8.0 (6.4-8.2) g/dL Albumin 4.1 (3.4-5.0) g/dL Globulin 3.9 (2.6-4.0) g/dL Albumin/Globulin Ratio 1.1 (0.9-1.6) Lipase 85 (73-393) U/L Urine Color Urine Appearance Urine pH (5.0-8.0) Ur Specific [place] (1.001-1.035) Urine Protein (NEGATIVE) mg/dL Urine Glucose (UA) (NEGATIVE) mg/dL Urine Ketones (NEGATIVE) mg/dL Urine Occult Blood (NEGATIVE) Urine Nitrite (NEGATIVE) Urine Bilirubin (NEGATIVE) Urine Urobilinogen (<2.0) EU/dL Ur Leukocyte Esterase (NEGATIVE) Urine RBC (0-2/HPF) Urine WBC (0-5/HPF) Ur Epithelial Cells (NONE-FEW) Urine Bacteria (NEGATIVE) Urine HCG, Qual (NEGATIVE) Meds: Medications Generic Name Dose Route Start Last Admin Trade Name Kelechi PRN Reason Stop Dose Admin Sodium Chloride 1,000 mls @ 150 mls/hr 03/06/21 18:45 03/06/21 18:51 Normal Saline IV 150 mls/hr ASDIRECTED FAINA Administration Piperacillin Sod/Tazobactam 100 mls @ 100 mls/hr 03/06/21 20:15 Sod 4.5 gm/ Sodium Chloride IV 03/06/21 21:14 ONETIME ONE Sodium Chloride 10 ml 03/06/21 18:38 03/06/21 18:52 Sodium Chloride 0.9% 10 Ml Syringe FLUSH 10 ml ASDIRECTED PRN Administration Keep Vein Open Sodium Chloride 2.5 ml 03/06/21 18:38 03/06/21 18:51 Sodium Chloride 0.9% 2.5 Ml Syringe FLUSH 2.5 ml ASDIRECTED PRN Administration Keep Vein Open Discontinued Medications Generic Name Dose Route Start Last Admin Trade Name Kelechi PRN Reason Stop Dose Admin Iopamidol 100 ml 03/06/21 19:10 03/06/21 19:11 Iopamidol 755 Mg/Ml 500 Ml Multipack Bottle IVPUSH 03/06/21 19:11 100 ml ONETIME STA Administration Ketorolac Tromethamine 15 mg 03/06/21 18:14 03/06/21 18:55 Ketorolac 30 Mg/Ml Sdv IVPUSH 03/06/21 18:15 15 mg ONETIME ONE Administration Ondansetron HCl 4 mg 03/06/21 18:14 03/06/21 18:55 Ondansetron 4 Mg/2 Ml Sdv IVPUSH 03/06/21 18:15 4 mg ONETIME ONE Administration Departure - Departure Time of Disposition: 20:16 Condition: Good Sepsis Event Note (ED) - Focused Exam Vital Signs: Vital Signs Temp Pulse Resp BP Pulse Ox 03/06/21 16:39 98.1 F 101 H 20 154/59 H 99 - My Orders Last 24 Hours: My Active Orders 03/06/21 20:12 CORONAVIRUS COVID-19 LUIS [MOLEC] Stat 03/06/21 20:15 Patient Status [ADT] Routine Piperacillin/Tazobactam [Piperacil-Tazobact] 4.5 gm Sodium Chloride 0.9% [Normal Saline AdvBag] 100 ml IV ONETIME - Assessment/Plan Last 24 Hours: My Active Orders 03/06/21 20:12 CORONAVIRUS COVID-19 LUIS [MOLEC] Stat 03/06/21 20:15 Patient Status [ADT] Routine Piperacillin/Tazobactam [Piperacil-Tazobact] 4.5 gm Sodium Chloride 0.9% [Normal Saline AdvBag] 100 ml IV ONETIME Assessment:: Patient received in sign out from Dr. Nguyen at [address] does demonstrate an acute appendicitis Zosyn has been ordered Covid swab will be added and will discuss with general surgery. 2044: Patient discussed in full with Dr. Caba. Agrees with starting Zosyn, will refer to obs on the floor plan will be for trip to the operating room for operative management first thing in the morning.
[2021-03-06] MEDS ORDERED: Sodium Chloride 0.9% 2.5 ML Syringe FLUSH PRN (18:38)
[2021-03-06] MEDS ORDERED: Sodium Chloride 0.9% 10 ML Syringe FLUSH PRN (18:38)
[2021-03-06 18:45] LABS: BLOOD UREA NITROGEN,BUN 9 mg/dL (7.0-18.0); CARBON DIOXIDE,CO2 28.1 mmol/L (21.0-32.0); CHLORIDE,CL 102 mmol/L (98-107); GLUCOSE RANDOM 95 mg/dL (74-106); LIPASE 85 U/L (73-393); POTASSIUM,K 3.8 mmol/L (3.5-5.1); SODIUM,NA 143 mmol/L (136-145)
[2021-03-06] MEDS ORDERED: Sodium Chloride 0.9% 1,000 ML IV SCH (18:45)
[2021-03-06] MEDS ORDERED: Iopamidol 755 MG/ML 500 ML Multipack Bottle IVPUSH STA (19:10)
--- NOTE | 2021-03-06 19:39 | CT ---
CT ABDOMEN AND PELVIS WITH INTRAVENOUS CONTRAST CLINICAL HISTORY: Right hypogastric pain. COMPARISON: None. TECHNIQUE: Axial images were obtained through the abdomen and pelvis following 100 cc Isovue 370 intravenous contrast. FINDINGS: The lung bases are clear. The liver, spleen, pancreas, gallbladder, adrenal glands and kidneys are within normal. The appendix is dilated to 1.5 cm with wall hyperenhancement and mild inflammatory fat stranding, consistent with acute appendicitis. No abscess. Probable appendicoliths. Small bowel is normal in caliber. No lymphadenopathy or ascites. The bones are within normal. IMPRESSION: Acute appendicitis. Megan Partida M.D. Breast/Body Radiologist [email or web address] NANETTE/Dictated by: Megan Partida MD @ 03/06/2021 7:25:00 PM (Electronically Signed)
[2021-03-06] MEDS ORDERED: Piperacillin/Tazobactam 4.5 GM in Sodium Chloride 0.9% 100 ML IV ONE (20:15)
[2021-03-06] MEDS ORDERED: Scopolamine 1.5 MG Transdermal Patch TRDERM PRN (22:30)
[2021-03-06] MEDS ORDERED: diphenhydrAMINE 50 MG/ML SDV IVPUSH PRN (22:30)
[2021-03-06] MEDS: Lactated Ringers 1,000 ML IV SCH (22:55)
[2021-03-06] MEDS ORDERED: Scopolamine 1.5 MG Transdermal Patch TOP ONE (23:23)
[2021-03-07] MEDS ORDERED: Piperacillin/Tazobactam 3.375 GM in Sodium Chloride 0.9% 50 ML IV SCH (03:00)
[2021-03-07] MEDS ORDERED: Acetaminophen 1,000 MG in Premix Bag 1 BAG IV PRN (04:19)
[2021-03-07] MEDS: HYDROmorphone 1 MG/ML Syringe IVPUSH PRN ×2 (04:27→16:00)
[2021-03-07] MEDS: Lactated Ringers 1,000 ML IV SCH (05:26)
--- NOTE | 2021-03-07 07:29 | PCM.PREANE ---
Preanesthetic Assessment - Procedure Proposed Procedure: [place] - Anesthesia/Transfusion/Family Hx Anesthesia History: Prior Anesthesia Without Reaction Family History of Anesthesia Reaction: No Transfusion History: No Prior Transfusion(s) - Review of Systems General: No Symptoms Pulmonary: No Symptoms (Chronic sinus issues) Cardiovascular: No Symptoms Gastrointestinal: No Symptoms Neurological: No Symptoms Other: Reports: None - Physical Assessment NPO Status Date: 03/06/21 NPO Status Time: 11:59 Vital Signs: Last Vital Signs Temp 98.2 F 03/07/21 04:00 Pulse 90 03/07/21 04:00 Resp 16 03/07/21 04:00 BP 123/76 03/07/21 04:00 Pulse Ox 97 03/07/21 04:00 Height: 5 ft 6 in Weight: 91.626 kg ASA Class: 2 Mental Status: Alert & Oriented x3 Airway Class: Mallampati = 2 Dentition: Reports: Normal Dentition Thyro-Mental Finger Breadths: 3 Mouth Opening Finger Breadths: 3 ROM/Head Extension: Full Lungs: Clear to Auscultation, Normal Respiratory Effort Cardiovascular: Regular Rate, Regular Rhythm - Lab Values: Laboratory Last Values WBC 8.10 K/uL (4.0-11.0) 03/06/21 18:07 RBC 4.54 M/uL (4.30-5.90) 03/06/21 18:07 Hgb 14.4 g/dL (12.0-16.0) 03/06/21 18:07 Hct 42.2 % (36.0-46.0) 03/06/21 18:07 MCV 93.0 fL (80.0-98.0) 03/06/21 18:07 MCH 31.7 pg (27.0-32.0) 03/06/21 18:07 MCHC 34.1 g/dL (31.0-37.0) 03/06/21 18:07 RDW Std Deviation 43.8 fl (28.0-62.0) 03/06/21 18:07 RDW Coeff of Nova 13 % (11.0-15.0) 03/06/21 18:07 Plt Count 308 K/uL (150-400) 03/06/21 18:07 MPV 9.50 fL (7.40-12.00) 03/06/21 18:07 Neut % (Auto) 62.5 % (48.0-80.0) 03/06/21 18:07 Lymph % (Auto) 28.6 % (16.0-40.0) 03/06/21 18:07 [place] % (Auto) 6.8 % (0.0-15.0) 03/06/21 18:07 Eos % (Auto) 1.7 % (0.0-7.0) 03/06/21 18:07 Baso % (Auto) 0.4 % (0.0-1.5) 03/06/21 18:07 Neut # (Auto) 5.1 K/uL (1.4-5.7) 03/06/21 18:07 Lymph # (Auto) 2.3 K/uL (0.6-2.4) 03/06/21 18:07 [place] # (Auto) 0.6 K/uL (0.0-0.8) 03/06/21 18:07 Eos # (Auto) 0.1 K/uL (0.0-0.7) 03/06/21 18:07 Baso # (Auto) 0.0 K/uL (0.0-0.1) 03/06/21 18:07 Nucleated RBC % 0.0 /100WBC 03/06/21 18:07 Nucleated RBCs # 0 K/uL 03/06/21 18:07 Sodium 143 mmol/L (136-145) 03/06/21 18:07 Potassium 3.8 mmol/L (3.5-5.1) 03/06/21 18:07 Chloride 102 mmol/L (98-107) 03/06/21 18:07 Carbon Dioxide 28.1 mmol/L (21.0-32.0) 03/06/21 18:07 BUN 9 mg/dL (7.0-18.0) 03/06/21 18:07 Creatinine 0.7 mg/dL (0.6-1.0) 03/06/21 18:07 Est Cr Clr Drug Dosing 109.01 mL/min 03/06/21 18:07 Estimated GFR (MDRD) > 60.0 ml/min 03/06/21 18:07 Glucose 95 mg/dL (74-106) 03/06/21 18:07 Calcium 9.4 mg/dL (8.5-10.1) 03/06/21 18:07 Total Bilirubin 0.2 mg/dL (0.2-1.0) 03/06/21 18:07 AST 12 IU/L (15-37) L 03/06/21 18:07 ALT 22 IU/L (14-63) 03/06/21 18:07 Alkaline Phosphatase 65 U/L (46-116) 03/06/21 18:07 Total Protein 8.0 g/dL (6.4-8.2) 03/06/21 18:07 Albumin 4.1 g/dL (3.4-5.0) 03/06/21 18:07 Globulin 3.9 g/dL (2.6-4.0) 03/06/21 18:07 Albumin/Globulin Ratio 1.1 (0.9-1.6) 03/06/21 18:07 Lipase 85 U/L (73-393) 03/06/21 18:07 Urine Color YELLOW 03/06/21 17:50 Urine Appearance CLEAR 03/06/21 17:50 Urine pH 6.0 (5.0-8.0) 03/06/21 17:50 Ur Specific [place] 1.010 (1.001-1.035) 03/06/21 17:50 Urine Protein NEGATIVE mg/dL (NEGATIVE) 03/06/21 17:50 Urine Glucose (UA) NEGATIVE mg/dL (NEGATIVE) 03/06/21 17:50 Urine Ketones NEGATIVE mg/dL (NEGATIVE) 03/06/21 17:50 Urine Occult Blood TRACE-INTACT (NEGATIVE) H 03/06/21 17:50 Urine Nitrite NEGATIVE (NEGATIVE) 03/06/21 17:50 Urine Bilirubin NEGATIVE (NEGATIVE) 03/06/21 17:50 Urine Urobilinogen 0.2 EU/dL (<2.0) 03/06/21 17:50 Ur Leukocyte Esterase TRACE (NEGATIVE) H 03/06/21 17:50 Urine RBC 0-2 (0-2/HPF) 03/06/21 17:50 Urine WBC 0-3 (0-5/HPF) 03/06/21 17:50 Ur Epithelial Cells RARE (NONE-FEW) 03/06/21 17:50 Urine Bacteria FEW (NEGATIVE) 03/06/21 17:50 Urine HCG, Qual NEGATIVE (NEGATIVE) 03/06/21 17:50 SARS-CoV-2 RNA (LUIS) NEGATIVE (NEGATIVE) 03/06/21 20:12 - Allergies Allergies/Adverse Reactions: Allergies Allergy/AdvReac Type Severity Reaction Status Date / Time No Known Allergies Allergy Verified 03/07/21 00:45 - Acknowledgements Anesthesia Type Planned: General Anesthesia Pt an Appropriate Candidate for the Planned Anesthesia: Yes Alternatives and Risks of Anesthesia Discussed w Pt/Guardian: Yes Pt/Guardian Understands and Agrees with Anesthesia Plan: Yes PreAnesthesia Questionnaire - Past Health History Medical/Surgical History: Denies Medical/Surgical History HEENT History: Reports: Impaired Vision, Other (See Below) Other HEENT History: wears contacts Cardiovascular History: Reports: None Respiratory History: Reports: None Gastrointestinal History: Reports: GERD Genitourinary History: Reports: None 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 History: Reports: None Neurological History: Reports: None Psychiatric History: Reports: Anxiety Endocrine/Metabolic History: Reports: Obesity/BMI 30+ Hematologic History: Reports: None Immunologic History: Reports: None - Past Surgical History HEENT Surgical History: Reports: Oral Surgery, Tonsillectomy, Other (See Below) Other HEENT Surgeries/Procedures: wisdom tooth extraction - SUBSTANCE USE Tobacco Use Status *Q: Never Tobacco User Days Per Week of Alcohol Use: 1 Number of Drinks Per Day: 0 Total Drinks Per Week: 0 Recreational Drug Use History: No - HOME MEDS Home Medications: Home Meds Vit Calc,Iron,Folic [ Vitamins] 1 tab PO DAILY 11/30/17 [History] Montelukast [Singulair] 10 mg PO DAILY 03/06/21 [History] Phentermine HCl 37.5 mg PO DAILY 03/06/21 [History] buPROPion [buPROPion XL] 150 mg PO BEDTIME 03/06/21 [History] - CURRENT (IN HOUSE) MEDS Current Meds: Current Medications Diphenhydramine HCl (Diphenhydramine 50 Mg/Ml Sdv) 25 mg IVPUSH Q6H PRN PRN Reason: Itching Hydromorphone HCl (Hydromorphone 1 Mg/Ml Syringe) 0.5 mg IVPUSH Q1H PRN PRN Reason: Pain Last Admin: 03/07/21 04:27 Dose: 0.5 mg Documented by: Sodium Chloride (Normal Saline) 1,000 mls @ 150 mls/hr IV ASDIRECTED [facility] Last Admin: 03/06/21 18:51 Dose: 150 mls/hr Documented by: Lactated Ringer's (Ringers, Lactated) 1,000 mls @ 150 mls/hr IV ASDIRECTED [facility] Last Admin: 03/07/21 05:26 Dose: 150 mls/hr Documented by: Piperacillin Sod/Tazobactam (Sod 3.375 gm/ Sodium Chloride) 50 mls @ 100 mls/hr IV Q6H [facility] Last Admin: 03/07/21 04:33 Dose: 100 mls/hr Documented by: Acetaminophen 1,000 mg/ Premix 100 mls @ 400 mls/hr IV Q6H PRN PRN Reason: Pain Ondansetron HCl (Ondansetron 4 Mg/2 Ml Sdv) 4 mg IVPUSH Q6H PRN PRN Reason: Nausea/Vomiting Scopolamine (Scopolamine 1.5 Mg Transdermal Patch) 1.5 mg TRDERM Q72H PRN PRN Reason: Nausea/Vomiting Sodium Chloride (Sodium Chloride 0.9% 10 Ml Syringe) 10 ml FLUSH ASDIRECTED PRN PRN Reason: Keep Vein Open Last Admin: 03/06/21 18:52 Dose: 10 ml Documented by: Sodium Chloride (Sodium Chloride 0.9% 2.5 Ml Syringe) 2.5 ml FLUSH ASDIRECTED PRN PRN Reason: Keep Vein Open Last Admin: 03/06/21 18:51 Dose: 2.5 ml Documented by: Discontinued Medications Piperacillin Sod/Tazobactam (Sod 4.5 gm/ Sodium Chloride) 100 mls @ 100 mls/hr IV ONETIME ONE Stop: 03/06/21 21:14 Last Admin: 03/06/21 20:55 Dose: 100 mls/hr Documented by: Iopamidol (Iopamidol 755 Mg/Ml 500 Ml Multipack Bottle) 100 ml IVPUSH ONETIME STA Stop: 03/06/21 19:11 Last Admin: 03/06/21 19:11 Dose: 100 ml Documented by: Ketorolac Tromethamine (Ketorolac 30 Mg/Ml Sdv) 15 mg IVPUSH ONETIME ONE Stop: 03/06/21 18:15 Last Admin: 03/06/21 18:55 Dose: 15 mg Documented by: Ondansetron HCl (Ondansetron 4 Mg/2 Ml Sdv) 4 mg IVPUSH ONETIME ONE Stop: 03/06/21 18:15 Last Admin: 03/06/21 18:55 Dose: 4 mg Documented by:
[2021-03-07] MEDS ORDERED: Albuterol 0.083% 2.5 MG/3 ML Neb Soln NEB PRN (07:54)
[2021-03-07] MEDS ORDERED: Naloxone 0.4 MG/ML SDV IVPUSH PRN (07:54)
[2021-03-07] MEDS ORDERED: Ondansetron 4 MG/2 ML SDV IVPUSH PRN (07:54)
[2021-03-07] MEDS ORDERED: Metoclopramide 10 MG/2 ML SDV IVPUSH PRN (07:54)
[2021-03-07] MEDS ORDERED: fentaNYL 100 MCG/2 ML SDV IVPUSH PRN (07:54)
[2021-03-07] MEDS ORDERED: HYDROmorphone 1 MG/ML Syringe IVPUSH PRN (07:54)
[2021-03-07] MEDS ORDERED: Esmolol 100 MG/10 ML SDV ONE (08:02)
[2021-03-07] MEDS ORDERED: Lidocaine 2% 5 ML SDV ONE (08:02)
[2021-03-07] MEDS ORDERED: Rocuronium Bromide 50 MG/5 ML Syringe ONE (08:02)
[2021-03-07] MEDS ORDERED: Dexamethasone 4 MG/ML 5 ML MDV ONE (08:02)
[2021-03-07] MEDS ORDERED: fentaNYL 100 MCG/2 ML SDV ONE (08:03)
[2021-03-07] MEDS ORDERED: Propofol 200 MG/20 ML SDV ONE (08:03)
[2021-03-07] MEDS ORDERED: Midazolam 1 MG/ML 2 ML SDV ONE (08:03)
[2021-03-07] MEDS ORDERED: Water For Injection, Sterile 20 ML ONE (08:04)
[2021-03-07] MEDS ORDERED: Dexmedetomidine 200 MCG/2 ML SDV ONE (08:04)
[2021-03-07] MEDS ORDERED: Octyl 2-Cyanoacrylate 1 Tube ONE (08:18)
[2021-03-07] MEDS ORDERED: Sugammadex Sodium 200 MG/2 ML VIAL ONE (09:40)
[2021-03-07] MEDS ORDERED: Ondansetron 4 MG/2 ML SDV ONE (09:40)
[2021-03-07] MEDS ORDERED: Ketorolac 30 MG/ML SDV ONE (09:40)
[2021-03-07] MEDS ORDERED: Bupivacaine 0.5% 30 ML SDV ONE (10:11)
--- NOTE | 2021-03-07 10:12 | PCM.POSTAN ---
POST ANESTHESIA ASSESSMENT - MENTAL STATUS Mental Status: Somnolent - VITAL SIGNS Vital Signs: Last Vital Signs Temp 97.5 F 03/07/21 07:54 Pulse 83 03/07/21 07:54 Resp 17 03/07/21 07:54 BP 112/59 L 03/07/21 07:54 Pulse Ox 97 03/07/21 07:54 - RESPIRATORY Respiratory Status: Respiratory Rate WNL, Airway Patent, O2 Saturation Stable - CARDIOVASCULAR CV Status: Pulse Rate WNL, Blood Pressure Stable - GASTROINTESTINAL GI Status: No Symptoms - PAIN Free Text/Narrative:: Resting comfortably - POST OP HYDRATION Hydration Status: Adequate & Stable
--- NOTE | 2021-03-07 10:15 | PCM.OPNOTE ---
- General Post-Op/Procedure Note Date of Surgery/Procedure: 03/07/21 Operative Procedure(s): Laparoscopic appendectomy Findings: Non-perforated, acute appendicitis, however appendix did have a small contained perforation with manipulation of the appendix. Pre Op Diagnosis: Acute appendicitis Post-Op Diagnosis: same Anesthesia Technique: General ET Tube Primary Surgeon: Gisell Caba Fluid Replacement, Intraop: 1,200 Output, Urine Amount: 175 EBL in mLs: 5 Condition: Good Free Text/Narrative:: Intake & Output 03/06/21 03/07/21 03/07/21 22:59 06:59 14:59 Intake Total 0 Output Total 200 Balance -200
--- NOTE | 2021-03-07 10:18 | PCM.HP.2 ---
H&P History of Present Illness - General Date of Service: 03/07/21 Admit Problem/Dx: Appendicitis Source of Information: Patient History Limitations: Reports: No Limitations - History of Present Illness Initial Comments - Free Text/Narative: Patient is a 30 year old female who presents with acute appendicitis. She developed severe abdominal pain over the weekend and into the earlier part of the week but it subsided. Yesterday the pain started becoming more severe again so she presented to the ER. She had nausea but no vomiting. She had stable vitals on admission. Her CBC and CMP were unremarkable. A CT scan of the abdomen and pelvis showed acute appendicitis. Abdomen Pain Score (Numeric/FACES): 2 - Related Data Allergies/Adverse Reactions: Allergies Allergy/AdvReac Type Severity Reaction Status Date / Time No Known Allergies Allergy Verified 03/07/21 00:45 Home Medications: Home Meds Vit Calc,Iron,Folic [ Vitamins] 1 tab PO DAILY 11/30/17 [History] Montelukast [Singulair] 10 mg PO DAILY 03/06/21 [History] Phentermine HCl 37.5 mg PO DAILY 03/06/21 [History] buPROPion [buPROPion XL] 150 mg PO BEDTIME 03/06/21 [History] Past Medical History - Past Health History Medical/Surgical History: Denies Medical/Surgical History HEENT History: Reports: Impaired Vision, Other (See Below) Other HEENT History: wears contacts Cardiovascular History: Reports: None Respiratory History: Reports: None Gastrointestinal History: Reports: GERD Genitourinary History: Reports: None [employer]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: Musculoskeletal History: Reports: None Neurological History: Reports: None Psychiatric History: Reports: Anxiety Endocrine/Metabolic History: Reports: Obesity/BMI 30+ Hematologic History: Reports: None Immunologic History: Reports: None - Past Surgical History HEENT Surgical History: Reports: Oral Surgery, Tonsillectomy, Other (See Below) Other HEENT Surgeries/Procedures: wisdom tooth extraction Social & Family History - Family History HEENT: Reports: Impaired Vision Cardiac: Reports: Hypertension, Other (See Below) Other Cardiac Family History: heart disease OBGYN: Reports: Neurological: Reports: CVA Psychiatric: Reports: Anxiety Endocrine/Metabolic: Reports: Diabetes, type II, Other (See Below) Other Endocrine/Metabolic Family History: thyroid disease Oncologic: Reports: Breast - Tobacco Use Tobacco Use Status *Q: Never Tobacco User - Caffeine Use Caffeine Use: Reports: Coffee, Energy Drinks, Soda - Alcohol Use Days Per Week of Alcohol Use: 1 Number of Drinks Per Day: 0 Total Drinks Per Week: 0 - Recreational Drug Use Recreational Drug Use: No H&P Review of Systems - Review of Systems: Review Of Systems: Comprehensive ROS is negative, except as noted in HPI. Exam - Exam Exam: See Below - Vital Signs Vital Signs: Last Vital Signs Temp 36.8 C 03/07/21 10:07 Pulse 88 03/07/21 10:13 Resp 14 03/07/21 10:13 BP 111/69 03/07/21 10:13 Pulse Ox 99 03/07/21 10:13 Weight: 91.626 kg - Exam General: Alert, Oriented HEENT: Conjunctiva Clear, Mucosa Moist & [place], Posterior Pharynx Clear Lungs: Clear to Auscultation, Normal Respiratory Effort Cardiovascular: Regular Rate, Regular Rhythm GI/Abdominal Exam: Soft, No Distention, Tender (mild tenderness to deep palpation in RLQ and right lower flank) - Patient Data Lab Results Last 24 hrs: Laboratory Results - last 24 hr 03/06/21 03/06/21 03/06/21 Range/Units 17:50 17:50 18:07 WBC 8.10 (4.0-11.0) K/uL RBC 4.54 (4.30-5.90) M/uL Hgb 14.4 (12.0-16.0) g/dL Hct 42.2 (36.0-46.0) % MCV 93.0 (80.0-98.0) fL MCH 31.7 (27.0-32.0) pg MCHC 34.1 (31.0-37.0) g/dL RDW Std Deviation 43.8 (28.0-62.0) fl RDW Coeff of Nova 13 (11.0-15.0) % Plt Count 308 (150-400) K/uL MPV 9.50 (7.40-12.00) fL Neut % (Auto) 62.5 (48.0-80.0) % Lymph % (Auto) 28.6 (16.0-40.0) % [place] % (Auto) 6.8 (0.0-15.0) % Eos % (Auto) 1.7 (0.0-7.0) % Baso % (Auto) 0.4 (0.0-1.5) % Neut # (Auto) 5.1 (1.4-5.7) K/uL Lymph # (Auto) 2.3 (0.6-2.4) K/uL [place] # (Auto) 0.6 (0.0-0.8) K/uL Eos # (Auto) 0.1 (0.0-0.7) K/uL Baso # (Auto) 0.0 (0.0-0.1) K/uL Nucleated RBC % 0.0 /100WBC Nucleated RBCs # 0 K/uL Sodium (136-145) mmol/L Potassium (3.5-5.1) mmol/L Chloride (98-107) mmol/L Carbon Dioxide (21.0-32.0) mmol/L BUN (7.0-18.0) mg/dL Creatinine (0.6-1.0) mg/dL Est Cr Clr Drug Dosing mL/min Estimated GFR (MDRD) ml/min Glucose (74-106) mg/dL Calcium (8.5-10.1) mg/dL Total Bilirubin (0.2-1.0) mg/dL AST (15-37) IU/L ALT (14-63) IU/L Alkaline Phosphatase (46-116) U/L Total Protein (6.4-8.2) g/dL Albumin (3.4-5.0) g/dL Globulin (2.6-4.0) g/dL Albumin/Globulin Ratio (0.9-1.6) Lipase (73-393) U/L Urine Color YELLOW Urine Appearance CLEAR Urine pH 6.0 (5.0-8.0) Ur Specific [place] 1.010 (1.001-1.035) Urine Protein NEGATIVE (NEGATIVE) mg/dL Urine Glucose (UA) NEGATIVE (NEGATIVE) mg/dL Urine Ketones NEGATIVE (NEGATIVE) mg/dL Urine Occult Blood TRACE-INTACT H (NEGATIVE) Urine Nitrite NEGATIVE (NEGATIVE) Urine Bilirubin NEGATIVE (NEGATIVE) Urine Urobilinogen 0.2 (<2.0) EU/dL Ur Leukocyte Esterase TRACE H (NEGATIVE) Urine RBC 0-2 (0-2/HPF) Urine WBC 0-3 (0-5/HPF) Ur Epithelial Cells RARE (NONE-FEW) Urine Bacteria FEW (NEGATIVE) Urine HCG, Qual NEGATIVE (NEGATIVE) SARS-CoV-2 RNA (LUIS) (NEGATIVE) 03/06/21 03/06/21 Range/Units 18:07 20:12 WBC (4.0-11.0) K/uL RBC (4.30-5.90) M/uL Hgb (12.0-16.0) g/dL Hct (36.0-46.0) % MCV (80.0-98.0) fL MCH (27.0-32.0) pg MCHC (31.0-37.0) g/dL RDW Std Deviation (28.0-62.0) fl RDW Coeff of [place] (11.0-15.0) % Plt Count (150-400) K/uL MPV (7.40-12.00) fL Neut % (Auto) (48.0-80.0) % Lymph % (Auto) (16.0-40.0) % [place] % (Auto) (0.0-15.0) % Eos % (Auto) (0.0-7.0) % Baso % (Auto) (0.0-1.5) % Neut # (Auto) (1.4-5.7) K/uL Lymph # (Auto) (0.6-2.4) K/uL [place] # (Auto) (0.0-0.8) K/uL Eos # (Auto) (0.0-0.7) K/uL Baso # (Auto) (0.0-0.1) K/uL Nucleated RBC % /100WBC Nucleated RBCs # K/uL Sodium 143 (136-145) mmol/L Potassium 3.8 (3.5-5.1) mmol/L Chloride 102 (98-107) mmol/L Carbon Dioxide 28.1 (21.0-32.0) mmol/L BUN 9 (7.0-18.0) mg/dL Creatinine 0.7 (0.6-1.0) mg/dL Est Cr Clr Drug Dosing 109.01 mL/min Estimated GFR (MDRD) > 60.0 ml/min Glucose 95 (74-106) mg/dL Calcium 9.4 (8.5-10.1) mg/dL Total Bilirubin 0.2 (0.2-1.0) mg/dL AST 12 L (15-37) IU/L ALT 22 (14-63) IU/L Alkaline Phosphatase 65 (46-116) U/L Total Protein 8.0 (6.4-8.2) g/dL Albumin 4.1 (3.4-5.0) g/dL Globulin 3.9 (2.6-4.0) g/dL Albumin/Globulin Ratio 1.1 (0.9-1.6) Lipase 85 (73-393) U/L Urine Color Urine Appearance Urine pH (5.0-8.0) Ur Specific [place] (1.001-1.035) Urine Protein (NEGATIVE) mg/dL Urine Glucose (UA) (NEGATIVE) mg/dL Urine Ketones (NEGATIVE) mg/dL Urine Occult Blood (NEGATIVE) Urine Nitrite (NEGATIVE) Urine Bilirubin (NEGATIVE) Urine Urobilinogen (<2.0) EU/dL Ur Leukocyte Esterase (NEGATIVE) Urine RBC (0-2/HPF) Urine WBC (0-5/HPF) Ur Epithelial Cells (NONE-FEW) Urine Bacteria (NEGATIVE) Urine HCG, Qual (NEGATIVE) SARS-CoV-2 RNA (LUIS) NEGATIVE (NEGATIVE) Result Diagrams: 03/06/21 18:07 03/06/21 18:07 Sepsis Event Note - Evaluation Sepsis Screening Result: No Definite Risk - Focused Exam Vital Signs: Vital Signs Temp Pulse Resp BP Pulse Ox 03/07/21 10:13 88 14 111/69 99 03/07/21 10:07 36.8 C 92 16 106/64 98 03/07/21 07:54 36.4 C 83 17 112/59 L 97 03/07/21 04:00 36.8 C 90 16 123/76 97 03/07/21 00:00 36.6 C 85 16 135/69 98 - Problem List (1) Acute appendicitis SNOMED Code(s): 14920189 ICD Code: K35.80 - UNSPECIFIED ACUTE APPENDICITIS Status: Acute Current Visit: Yes Problem List Initiated/Reviewed/Updated: Yes Orders Last 24hrs: Active Orders 24 hr Category Date Time Status Patient Status [ADT] Routine ADT 03/06/21 20:15 Active Blood Glucose Check, Bedside [RC] PRN Care 03/07/21 07:54 Active Intake and Output [RC] QSHIFT Care 03/07/21 10:16 Ordered Notify Provider Vital Signs [RC] ASDIRECTED Care 03/07/21 07:54 Active Overnight Pulse Oximetry [RC] Click to Edit Care 03/07/21 07:54 Active Oxygen Therapy [RC] PRN Care 03/07/21 07:54 Active Oxygen Therapy [RC] PRN Care 03/07/21 10:16 Ordered RT Aerosol Therapy [RC] ASDIRECTED Care 03/07/21 07:54 Active RT Aerosol Therapy [RC] ASDIRECTED Care 03/07/21 07:54 Active RT BiPAP/CPAP [RC] ASDIRECTED Care 03/07/21 07:54 Active RT Incentive Spirometry [RC] Q1HWA Care 03/07/21 10:15 Ordered Up ad Jolene [RC] ASDIRECTED Care 03/07/21 10:15 Ordered Vital Signs [RC] PER UNIT ROUTINE Care 03/07/21 10:16 Ordered Vital Signs [RC] Q5M Care 03/07/21 07:54 Active Regular Diet [DIET] Diet 03/07/21 Lunch Ordered Acetaminophen [Ofirmev 1000 mg/100 ml] 1,000 mg Med 03/07/21 04:19 Active Premix Bag 1 bag IV Q6H Acetaminophen/oxyCODONE [Percocet 325-5 MG] Med 03/07/21 10:15 Ordered 2 tab PO Q4H PRN Albuterol [Proventil Neb Soln] Med 03/07/21 07:54 Active 2.5 mg NEB ONETIME PRN HYDROmorphone [Dilaudid] Med 03/06/21 22:30 Active 0.5 mg IVPUSH Q1H PRN HYDROmorphone [Dilaudid] Med 03/07/21 07:54 Active 1 mg IVPUSH Q10M PRN Lactated Ringers [Ringers, Lactated] 1,000 ml Med 03/06/21 23:30 Stop Req IV ASDIRECTED Metoclopramide [Reglan] Med 03/07/21 07:54 Active 10 mg IVPUSH ONETIME PRN Naloxone [Narcan] Med 03/07/21 07:54 Active 0.1 mg IVPUSH ASDIRECTED PRN Ondansetron [Zofran] Med 03/07/21 07:54 Active 4 mg IVPUSH ONETIME PRN Ondansetron [Zofran] Med 03/06/21 22:30 Active 4 mg IVPUSH Q6H PRN Piperacillin/Tazobactam [Piperacil-Tazobact] 3.375 gm Med 03/07/21 11:00 Active Sodium Chloride 0.9% [Normal Saline AdvBag] 50 ml IV Q6H Scopolamine [Transderm-Scop] Med 03/06/21 22:30 Active 1.5 mg TRDERM Q72H PRN Sodium Chloride 0.9% [Normal Saline] 1,000 ml Med 03/06/21 18:45 Active IV ASDIRECTED Sodium Chloride 0.9% [Saline Flush] Med 03/06/21 18:38 Active 10 ml FLUSH ASDIRECTED PRN Sodium Chloride 0.9% [Saline Flush] Med 03/06/21 18:38 Active 2.5 ml FLUSH ASDIRECTED PRN diphenhydrAMINE [Benadryl] Med 03/06/21 22:30 Active 25 mg IVPUSH Q6H PRN droperidoL [Inapsine] Med 03/07/21 07:54 Active 0.625 mg IVPUSH ONETIME PRN fentaNYL [Sublimaze] Med 03/07/21 07:54 Active 50 mcg IVPUSH Q5M PRN Pulse Oximetry Continuous Monitoring [OM.PC] Routine Oth 03/07/21 07:54 Ordered Saline Lock Insert [OM.PC] Stat Oth 03/06/21 18:38 Ordered Sequential Compression Device [OM.PC] Routine Oth 03/06/21 22:30 Ordered Resuscitation Status Routine Resus Stat 03/07/21 10:15 Ordered Medication Orders Albuterol (Albuterol 0.083% 2.5 Mg/3 Ml Neb Soln) 2.5 mg NEB ONETIME PRN PRN Reason: Wheezing Diphenhydramine HCl (Diphenhydramine 50 Mg/Ml Sdv) 25 mg IVPUSH Q6H PRN PRN Reason: Itching Droperidol (Droperidol 5 Mg/2 Ml Sdv) 0.625 mg IVPUSH ONETIME PRN PRN Reason: Nausea/Vomiting Fentanyl (Fentanyl 100 Mcg/2 Ml Sdv) 50 mcg IVPUSH Q5M PRN PRN Reason: Pain (mild 1-3) Hydromorphone HCl (Hydromorphone 1 Mg/Ml Syringe) 0.5 mg IVPUSH Q1H PRN PRN Reason: Pain Last Admin: 03/07/21 04:27 Dose: 0.5 mg Documented by: FRANKLNI Hydromorphone HCl (Hydromorphone 1 Mg/Ml Syringe) 1 mg IVPUSH Q10M PRN PRN Reason: Pain (moderate 4-6) Sodium Chloride (Normal Saline) 1,000 mls @ 150 mls/hr IV ASDIRECTED [facility] Last Admin: 03/06/21 18:51 Dose: 150 mls/hr Documented by: LOULOU Lactated Ringer's (Ringers, Lactated) 1,000 mls @ 150 mls/hr IV ASDIRECTED [facility] Last Admin: 03/07/21 05:26 Dose: 150 mls/hr Documented by: Infusion: 03/07/21 05:26 Dose: 150 mls/hr Documented by: Admin: 03/06/21 22:55 Dose: 150 mls/hr Documented by: FRANKLIN Acetaminophen 1,000 mg/ Premix 100 mls @ 400 mls/hr IV Q6H PRN PRN Reason: Pain Piperacillin Sod/Tazobactam (Sod 3.375 gm/ Sodium Chloride) 50 mls @ 100 mls/hr IV Q6H [facility] Metoclopramide HCl (Metoclopramide 10 Mg/2 Ml Sdv) 10 mg IVPUSH ONETIME PRN PRN Reason: Nausea/Vomiting Naloxone HCl (Naloxone 0.4 Mg/Ml Sdv) 0.1 mg IVPUSH ASDIRECTED PRN PRN Reason: Respiratory Depression Ondansetron HCl (Ondansetron 4 Mg/2 Ml Sdv) 4 mg IVPUSH Q6H PRN PRN Reason: Nausea/Vomiting Ondansetron HCl (Ondansetron 4 Mg/2 Ml Sdv) 4 mg IVPUSH ONETIME PRN PRN Reason: Nausea/Vomiting Oxycodone/Acetaminophen (Acetaminophen/Oxycodone 325-5 Mg Tab) 2 tab PO Q4H PRN PRN Reason: Pain (moderate 4-6) Scopolamine (Scopolamine 1.5 Mg Transdermal Patch) 1.5 mg TRDERM Q72H PRN PRN Reason: Nausea/Vomiting Sodium Chloride (Sodium Chloride 0.9% 10 Ml Syringe) 10 ml FLUSH ASDIRECTED PRN PRN Reason: Keep Vein Open Last Admin: 03/06/21 18:52 Dose: 10 ml Documented by: LOULOU Sodium Chloride (Sodium Chloride 0.9% 2.5 Ml Syringe) 2.5 ml FLUSH ASDIRECTED PRN PRN Reason: Keep Vein Open Last Admin: 03/06/21 18:51 Dose: 2.5 ml Documented by: LOULOU Assessment/Plan Comment:: The patient and I discussed the pathophysiology of acute appendicitis. I explained that the treatment is an appendectomy. I will attempt this laparoscopically but convert to open should I be unable to perform it safely. We discussed the expected perioperative course for each procedure. I explained the different treatment courses for ruptured vs non-ruptured appendicitis. I discussed the risks including bleeding infection or damage to surrounding structures. She verbalized understanding and wished to proceed.
--- NOTE | 2021-03-07 10:38 | PCM48HPAN ---
Post Anesthesia Note - EVALUATION WITHIN 48HRS OF ANESTHETIC Vital Signs in Normal Range: Yes Patient Participated in Evaluation: Yes Respiratory Function Stable: Yes Airway Patent: Yes Cardiovascular Function Stable: Yes Hydration Status Stable: Yes Pain Control Satisfactory: Yes Nausea and Vomiting Control Satisfactory: Yes Mental Status Recovered: Yes Vital Signs: Last Vital Signs Temp 98.2 F 03/07/21 10:07 Pulse 78 03/07/21 10:33 Resp 14 03/07/21 10:33 BP 109/68 03/07/21 10:33 Pulse Ox 99 03/07/21 10:33 - COMMENTS/OBSERVATIONS Free Text/Narrative:: Pt doing well post-op. VSS. No apparent anesthetic complications. Dr. Francisco Pedro
[2021-03-07] MEDS: Piperacillin/Tazobactam 3.375 GM in Sodium Chloride 0.9% 50 ML IV SCH ×2 (11:13→17:21)
[2021-03-07] MEDS: Acetaminophen/oxyCODONE 325-5 MG Tab PO PRN ×2 (12:55→18:41)
--- NOTE | 2021-03-07 16:08 | PCM.SURGPN ---
- General Info Date of Service: 03/07/21 Date of Surgery/Procedure: 03/07/21 POD#: 0 - Review of Systems General: Reports: No Symptoms Pulmonary: Reports: No Symptoms Cardiovascular: Reports: No Symptoms Gastrointestinal: Reports: Other (Some mild RLQ discomfort and incisional discomfort. ) Musculoskeletal: Reports: Shoulder Pain (Right shoulder crampy pain ) Skin: Reports: No Symptoms - Patient Data Vitals - Most Recent: Last Vital Signs Temp 36.8 C 03/07/21 13:00 Pulse 94 03/07/21 13:00 Resp 15 03/07/21 13:00 BP 116/67 03/07/21 13:00 Pulse Ox 96 03/07/21 13:00 Weight - Most Recent: 91.626 kg I&O - Last 24 Hours: Intake & Output 03/07/21 03/07/21 03/07/21 06:59 14:59 22:59 Intake Total 0 2600 Output Total 200 350 Balance -200 2250 Lab Results Last 24 Hrs: Laboratory Results - last 24 hr 03/06/21 03/06/21 03/06/21 Range/Units 17:50 17:50 18:07 WBC 8.10 (4.0-11.0) K/uL RBC 4.54 (4.30-5.90) M/uL Hgb 14.4 (12.0-16.0) g/dL Hct 42.2 (36.0-46.0) % MCV 93.0 (80.0-98.0) fL MCH 31.7 (27.0-32.0) pg MCHC 34.1 (31.0-37.0) g/dL RDW Std Deviation 43.8 (28.0-62.0) fl RDW Coeff of Nova 13 (11.0-15.0) % Plt Count 308 (150-400) K/uL MPV 9.50 (7.40-12.00) fL Neut % (Auto) 62.5 (48.0-80.0) % Lymph % (Auto) 28.6 (16.0-40.0) % Smith % (Auto) 6.8 (0.0-15.0) % Eos % (Auto) 1.7 (0.0-7.0) % Baso % (Auto) 0.4 (0.0-1.5) % Neut # (Auto) 5.1 (1.4-5.7) K/uL Lymph # (Auto) 2.3 (0.6-2.4) K/uL Smith # (Auto) 0.6 (0.0-0.8) K/uL Eos # (Auto) 0.1 (0.0-0.7) K/uL Baso # (Auto) 0.0 (0.0-0.1) K/uL Nucleated RBC % 0.0 /100WBC Nucleated RBCs # 0 K/uL Sodium (136-145) mmol/L Potassium (3.5-5.1) mmol/L Chloride (98-107) mmol/L Carbon Dioxide (21.0-32.0) mmol/L BUN (7.0-18.0) mg/dL Creatinine (0.6-1.0) mg/dL Est Cr Clr Drug Dosing mL/min Estimated GFR (MDRD) ml/min Glucose (74-106) mg/dL Calcium (8.5-10.1) mg/dL Total Bilirubin (0.2-1.0) mg/dL AST (15-37) IU/L ALT (14-63) IU/L Alkaline Phosphatase (46-116) U/L Total Protein (6.4-8.2) g/dL Albumin (3.4-5.0) g/dL Globulin (2.6-4.0) g/dL Albumin/Globulin Ratio (0.9-1.6) Lipase (73-393) U/L Urine Color YELLOW Urine Appearance CLEAR Urine pH 6.0 (5.0-8.0) Ur Specific [place] 1.010 (1.001-1.035) Urine Protein NEGATIVE (NEGATIVE) mg/dL Urine Glucose (UA) NEGATIVE (NEGATIVE) mg/dL Urine Ketones NEGATIVE (NEGATIVE) mg/dL Urine Occult Blood TRACE-INTACT H (NEGATIVE) Urine Nitrite NEGATIVE (NEGATIVE) Urine Bilirubin NEGATIVE (NEGATIVE) Urine Urobilinogen 0.2 (<2.0) EU/dL Ur Leukocyte Esterase TRACE H (NEGATIVE) Urine RBC 0-2 (0-2/HPF) Urine WBC 0-3 (0-5/HPF) Ur Epithelial Cells RARE (NONE-FEW) Urine Bacteria FEW (NEGATIVE) Urine HCG, Qual NEGATIVE (NEGATIVE) SARS-CoV-2 RNA (LUIS) (NEGATIVE) 03/06/21 03/06/21 Range/Units 18:07 20:12 WBC (4.0-11.0) K/uL RBC (4.30-5.90) M/uL Hgb (12.0-16.0) g/dL Hct (36.0-46.0) % MCV (80.0-98.0) fL MCH (27.0-32.0) pg MCHC (31.0-37.0) g/dL RDW Std Deviation (28.0-62.0) fl RDW Coeff of Nova (11.0-15.0) % Plt Count (150-400) K/uL MPV (7.40-12.00) fL Neut % (Auto) (48.0-80.0) % Lymph % (Auto) (16.0-40.0) % Smith % (Auto) (0.0-15.0) % Eos % (Auto) (0.0-7.0) % Baso % (Auto) (0.0-1.5) % Neut # (Auto) (1.4-5.7) K/uL Lymph # (Auto) (0.6-2.4) K/uL Smith # (Auto) (0.0-0.8) K/uL Eos # (Auto) (0.0-0.7) K/uL Baso # (Auto) (0.0-0.1) K/uL Nucleated RBC % /100WBC Nucleated RBCs # K/uL Sodium 143 (136-145) mmol/L Potassium 3.8 (3.5-5.1) mmol/L Chloride 102 (98-107) mmol/L Carbon Dioxide 28.1 (21.0-32.0) mmol/L BUN 9 (7.0-18.0) mg/dL Creatinine 0.7 (0.6-1.0) mg/dL Est Cr Clr Drug Dosing 109.01 mL/min Estimated GFR (MDRD) > 60.0 ml/min Glucose 95 (74-106) mg/dL Calcium 9.4 (8.5-10.1) mg/dL Total Bilirubin 0.2 (0.2-1.0) mg/dL AST 12 L (15-37) IU/L ALT 22 (14-63) IU/L Alkaline Phosphatase 65 (46-116) U/L Total Protein 8.0 (6.4-8.2) g/dL Albumin 4.1 (3.4-5.0) g/dL Globulin 3.9 (2.6-4.0) g/dL Albumin/Globulin Ratio 1.1 (0.9-1.6) Lipase 85 (73-393) U/L Urine Color Urine Appearance Urine pH (5.0-8.0) Ur Specific [place] (1.001-1.035) Urine Protein (NEGATIVE) mg/dL Urine Glucose (UA) (NEGATIVE) mg/dL Urine Ketones (NEGATIVE) mg/dL Urine Occult Blood (NEGATIVE) Urine Nitrite (NEGATIVE) Urine Bilirubin (NEGATIVE) Urine Urobilinogen (<2.0) EU/dL Ur Leukocyte Esterase (NEGATIVE) Urine RBC (0-2/HPF) Urine WBC (0-5/HPF) Ur Epithelial Cells (NONE-FEW) Urine Bacteria (NEGATIVE) Urine HCG, Qual (NEGATIVE) SARS-CoV-2 RNA (LUIS) NEGATIVE (NEGATIVE) Med Orders - Current: Current Medications Albuterol (Albuterol 0.083% 2.5 Mg/3 Ml Neb Soln) 2.5 mg NEB ONETIME PRN PRN Reason: Wheezing Diphenhydramine HCl (Diphenhydramine 50 Mg/Ml Sdv) 25 mg IVPUSH Q6H PRN PRN Reason: Itching Droperidol (Droperidol 5 Mg/2 Ml Sdv) 0.625 mg IVPUSH ONETIME PRN PRN Reason: Nausea/Vomiting Fentanyl (Fentanyl 100 Mcg/2 Ml Sdv) 50 mcg IVPUSH Q5M PRN PRN Reason: Pain (mild 1-3) Hydromorphone HCl (Hydromorphone 1 Mg/Ml Syringe) 0.5 mg IVPUSH Q1H PRN PRN Reason: Pain Last Admin: 03/07/21 16:00 Dose: 0.5 mg Documented by: Hydromorphone HCl (Hydromorphone 1 Mg/Ml Syringe) 1 mg IVPUSH Q10M PRN PRN Reason: Pain (moderate 4-6) Sodium Chloride (Normal Saline) 1,000 mls @ 150 mls/hr IV ASDIRECTED FAINA Last Admin: 03/06/21 18:51 Dose: 150 mls/hr Documented by: Acetaminophen 1,000 mg/ Premix 100 mls @ 400 mls/hr IV Q6H PRN PRN Reason: Pain Piperacillin Sod/Tazobactam (Sod 3.375 gm/ Sodium Chloride) 50 mls @ 100 mls/hr IV Q6H [facility] Last Admin: 03/07/21 11:13 Dose: 100 mls/hr Documented by: Metoclopramide HCl (Metoclopramide 10 Mg/2 Ml Sdv) 10 mg IVPUSH ONETIME PRN PRN Reason: Nausea/Vomiting Naloxone HCl (Naloxone 0.4 Mg/Ml Sdv) 0.1 mg IVPUSH ASDIRECTED PRN PRN Reason: Respiratory Depression Ondansetron HCl (Ondansetron 4 Mg/2 Ml Sdv) 4 mg IVPUSH Q6H PRN PRN Reason: Nausea/Vomiting Ondansetron HCl (Ondansetron 4 Mg/2 Ml Sdv) 4 mg IVPUSH ONETIME PRN PRN Reason: Nausea/Vomiting Oxycodone/Acetaminophen (Acetaminophen/Oxycodone 325-5 Mg Tab) 2 tab PO Q4H PRN PRN Reason: Pain (moderate 4-6) Last Admin: 03/07/21 12:55 Dose: 2 tab Documented by: Scopolamine (Scopolamine 1.5 Mg Transdermal Patch) 1.5 mg TRDERM Q72H PRN PRN Reason: Nausea/Vomiting Sodium Chloride (Sodium Chloride 0.9% 10 Ml Syringe) 10 ml FLUSH ASDIRECTED PRN PRN Reason: Keep Vein Open Last Admin: 03/06/21 18:52 Dose: 10 ml Documented by: Sodium Chloride (Sodium Chloride 0.9% 2.5 Ml Syringe) 2.5 ml FLUSH ASDIRECTED PRN PRN Reason: Keep Vein Open Last Admin: 03/06/21 18:51 Dose: 2.5 ml Documented by: Discontinued Medications Bupivacaine HCl (Bupivacaine 0.5% 30 Ml Sdv) Confirm Administered Dose 30 ml .ROUTE .STK-MED ONE Stop: 03/07/21 10:12 Dexamethasone (Dexamethasone 4 Mg/Ml 5 Ml Mdv) Confirm Administered Dose 20 mg .ROUTE .STK-MED ONE Stop: 03/07/21 08:03 Dexmedetomidine HCl (Dexmedetomidine 200 Mcg/2 Ml Sdv) Confirm Administered Dose 200 mcg .ROUTE .STK-MED ONE Stop: 03/07/21 08:05 Esmolol HCl (Esmolol 100 Mg/10 Ml Sdv) Confirm Administered Dose 100 mg .ROUTE .STK-MED ONE Stop: 03/07/21 08:03 Fentanyl (Fentanyl 100 Mcg/2 Ml Sdv) Confirm Administered Dose 100 mcg .ROUTE .STK-MED ONE Stop: 03/07/21 08:04 Piperacillin Sod/Tazobactam (Sod 4.5 gm/ Sodium Chloride) 100 mls @ 100 mls/hr IV ONETIME ONE Stop: 03/06/21 21:14 Last Admin: 03/06/21 20:55 Dose: 100 mls/hr Documented by: Lactated Ringer's (Ringers, Lactated) 1,000 mls @ 150 mls/hr IV ASDIRECTED [facility] Last Admin: 03/07/21 05:26 Dose: 150 mls/hr Documented by: Piperacillin Sod/Tazobactam (Sod 3.375 gm/ Sodium Chloride) 50 mls @ 100 mls/hr IV Q6H [facility] Last Admin: 03/07/21 04:33 Dose: 100 mls/hr Documented by: Sterile Water (Sterile Water For Injection) Confirm Administered Dose 20 mls @ as directed .ROUTE .STK-MED ONE Stop: 03/07/21 08:05 Iopamidol (Iopamidol 755 Mg/Ml 500 Ml Multipack Bottle) 100 ml IVPUSH ONETIME STA Stop: 03/06/21 19:11 Last Admin: 03/06/21 19:11 Dose: 100 ml Documented by: Ketorolac Tromethamine (Ketorolac 30 Mg/Ml Sdv) 15 mg IVPUSH ONETIME ONE Stop: 03/06/21 18:15 Last Admin: 03/06/21 18:55 Dose: 15 mg Documented by: Ketorolac Tromethamine (Ketorolac 30 Mg/Ml Sdv) Confirm Administered Dose 30 mg .ROUTE .STK-MED ONE Stop: 03/07/21 09:41 Lidocaine (Lidocaine 2% 5 Ml Sdv) Confirm Administered Dose 5 ml .ROUTE .STK-MED ONE Stop: 03/07/21 08:03 Midazolam HCl (Midazolam 1 Mg/Ml 2 Ml Sdv) Confirm Administered Dose 2 mg .ROUTE .STK-MED ONE Stop: 03/07/21 08:04 Octyl Cyanoacrylate (Octyl 2-Cyanoacrylate 1 Tube) Confirm Administered Dose 1 applic .ROUTE .STK-MED ONE Stop: 03/07/21 08:19 Ondansetron HCl (Ondansetron 4 Mg/2 Ml Sdv) 4 mg IVPUSH ONETIME ONE Stop: 03/06/21 18:15 Last Admin: 03/06/21 18:55 Dose: 4 mg Documented by: Ondansetron HCl (Ondansetron 4 Mg/2 Ml Sdv) Confirm Administered Dose 4 mg .ROUTE .STK-MED ONE Stop: 03/07/21 09:41 Propofol (Propofol 200 Mg/20 Ml Sdv) Confirm Administered Dose 200 mg .ROUTE .STK-MED ONE Stop: 03/07/21 08:04 Rocuronium [place] (Rocuronium [place] 50 Mg/5 Ml Syringe) Confirm Administered Dose 50 mg .ROUTE .STK-MED ONE Stop: 03/07/21 08:03 Sugammadex Sodium (Sugammadex Sodium 200 Mg/2 Ml Vial) Confirm Administered Dose 200 mg .ROUTE .STK-MED ONE Stop: 03/07/21 09:41 - Exam Wound/Incisions: Healing Well, Dressing Dry and Intact General: Alert, Oriented Lungs: Normal Respiratory Effort Cardiovascular: Regular Rate GI/Abdominal Exam: Soft, Non-Tender, No Distention, No Mass Skin: Warm, Dry, Intact Sepsis Event Note - Evaluation Sepsis Screening Result: No Definite Risk - Focused Exam Vital Signs: Vital Signs Temp Pulse Resp BP Pulse Ox 03/07/21 13:00 36.8 C 94 15 116/67 96 03/07/21 12:30 36.7 C 83 16 110/55 L 94 L 03/07/21 12:00 36.9 C 75 17 109/57 L 96 03/07/21 11:45 37.0 C 72 16 107/68 94 L 03/07/21 11:30 37.1 C 84 17 107/74 95 03/07/21 11:15 36.9 C 85 16 110/59 L 94 L 03/07/21 11:00 37.0 C 82 15 114/62 96 03/07/21 10:48 82 18 114/72 96 03/07/21 10:43 83 17 110/69 96 03/07/21 10:38 81 15 107/66 95 03/07/21 10:33 78 14 109/68 99 03/07/21 10:28 80 15 108/68 99 03/07/21 10:23 90 18 113/70 99 03/07/21 10:18 93 16 121/75 99 03/07/21 10:13 88 14 111/69 99 03/07/21 10:07 36.8 C 92 16 106/64 98 03/07/21 07:54 36.4 C 83 17 112/59 L 97 - Problem List & Annotations (1) Acute appendicitis SNOMED Code(s): 72993590 Code(s): K35.80 - UNSPECIFIED ACUTE APPENDICITIS Status: Acute Current Visit: Yes Qualifiers: Acute appendicitis type: with localized peritonitis Appendicitis perforation presence: without perforation Appendicitis abscess presence: without abscess - Problem List Review Problem List Initiated/Reviewed/Updated: Yes - My Orders Last 24 Hours: Active Orders 24 hr Category Date Time Status Patient Status [ADT] Routine ADT 03/06/21 20:15 Active Intake and Output [RC] Q12H Care 03/07/21 10:16 Active Overnight Pulse Oximetry [RC] Click to Edit Care 03/07/21 07:54 Active Oxygen Therapy [RC] PRN Care 03/07/21 10:16 Active RT Aerosol Therapy [RC] ASDIRECTED Care 03/07/21 07:54 Active RT Incentive Spirometry [RC] Q1HWA Care 03/07/21 10:15 Active Up ad Jolene [RC] ASDIRECTED Care 03/07/21 10:15 Active Vital Signs [RC] Q4H Care 03/07/21 10:16 Active Regular Diet [DIET] Diet 03/07/21 Lunch Active Acetaminophen [Ofirmev 1000 mg/100 ml] 1,000 mg Med 03/07/21 04:19 Active Premix Bag 1 bag IV Q6H Acetaminophen/oxyCODONE [Percocet 325-5 MG] Med 03/07/21 10:15 Active 2 tab PO Q4H PRN Albuterol [Proventil Neb Soln] Med 03/07/21 07:54 Active 2.5 mg NEB ONETIME PRN HYDROmorphone [Dilaudid] Med 03/06/21 22:30 Active 0.5 mg IVPUSH Q1H PRN HYDROmorphone [Dilaudid] Med 03/07/21 07:54 Active 1 mg IVPUSH Q10M PRN Metoclopramide [Reglan] Med 03/07/21 07:54 Active 10 mg IVPUSH ONETIME PRN Naloxone [Narcan] Med 03/07/21 07:54 Active 0.1 mg IVPUSH ASDIRECTED PRN Ondansetron [Zofran] Med 03/07/21 07:54 Active 4 mg IVPUSH ONETIME PRN Ondansetron [Zofran] Med 03/06/21 22:30 Active 4 mg IVPUSH Q6H PRN Piperacillin/Tazobactam [Piperacil-Tazobact] 3.375 gm Med 03/07/21 11:00 Active Sodium Chloride 0.9% [Normal Saline AdvBag] 50 ml IV Q6H Scopolamine [Transderm-Scop] Med 03/06/21 22:30 Active 1.5 mg TRDERM Q72H PRN Sodium Chloride 0.9% [Normal Saline] 1,000 ml Med 03/06/21 18:45 Active IV ASDIRECTED Sodium Chloride 0.9% [Saline Flush] Med 03/06/21 18:38 Active 10 ml FLUSH ASDIRECTED PRN Sodium Chloride 0.9% [Saline Flush] Med 03/06/21 18:38 Active 2.5 ml FLUSH ASDIRECTED PRN diphenhydrAMINE [Benadryl] Med 03/06/21 22:30 Active 25 mg IVPUSH Q6H PRN droperidoL [Inapsine] Med 03/07/21 07:54 Active 0.625 mg IVPUSH ONETIME PRN fentaNYL [Sublimaze] Med 03/07/21 07:54 Active 50 mcg IVPUSH Q5M PRN Pulse Oximetry Continuous Monitoring [OM.PC] Routine Oth 03/07/21 07:54 Ordered Saline Lock Insert [OM.PC] Stat Oth 03/06/21 18:38 Ordered Sequential Compression Device [OM.PC] Routine Oth 03/06/21 22:30 Ordered Resuscitation Status Routine Resus Stat 03/07/21 10:15 Ordered Medication Orders Albuterol (Albuterol 0.083% 2.5 Mg/3 Ml Neb Soln) 2.5 mg NEB ONETIME PRN PRN Reason: Wheezing Diphenhydramine HCl (Diphenhydramine 50 Mg/Ml Sdv) 25 mg IVPUSH Q6H PRN PRN Reason: Itching Droperidol (Droperidol 5 Mg/2 Ml Sdv) 0.625 mg IVPUSH ONETIME PRN PRN Reason: Nausea/Vomiting Fentanyl (Fentanyl 100 Mcg/2 Ml Sdv) 50 mcg IVPUSH Q5M PRN PRN Reason: Pain (mild 1-3) Hydromorphone HCl (Hydromorphone 1 Mg/Ml Syringe) 0.5 mg IVPUSH Q1H PRN PRN Reason: Pain Last Admin: 03/07/21 16:00 Dose: 0.5 mg Documented by: Admin: 03/07/21 04:27 Dose: 0.5 mg Documented by: FRANKLIN Hydromorphone HCl (Hydromorphone 1 Mg/Ml Syringe) 1 mg IVPUSH Q10M PRN PRN Reason: Pain (moderate 4-6) Sodium Chloride (Normal Saline) 1,000 mls @ 150 mls/hr IV ASDIRECTED [facility] Last Admin: 03/06/21 18:51 Dose: 150 mls/hr Documented by: LOULOU Acetaminophen 1,000 mg/ Premix 100 mls @ 400 mls/hr IV Q6H PRN PRN Reason: Pain Piperacillin Sod/Tazobactam (Sod 3.375 gm/ Sodium Chloride) 50 mls @ 100 mls/hr IV Q6H [facility] Last Admin: 03/07/21 11:13 Dose: 100 mls/hr Documented by: LEROY Metoclopramide HCl (Metoclopramide 10 Mg/2 Ml Sdv) 10 mg IVPUSH ONETIME PRN PRN Reason: Nausea/Vomiting Naloxone HCl (Naloxone 0.4 Mg/Ml Sdv) 0.1 mg IVPUSH ASDIRECTED PRN PRN Reason: Respiratory Depression Ondansetron HCl (Ondansetron 4 Mg/2 Ml Sdv) 4 mg IVPUSH Q6H PRN PRN Reason: Nausea/Vomiting Ondansetron HCl (Ondansetron 4 Mg/2 Ml Sdv) 4 mg IVPUSH ONETIME PRN PRN Reason: Nausea/Vomiting Oxycodone/Acetaminophen (Acetaminophen/Oxycodone 325-5 Mg Tab) 2 tab PO Q4H PRN PRN Reason: Pain (moderate 4-6) Last Admin: 03/07/21 12:55 Dose: 2 tab Documented by: LEROY Scopolamine (Scopolamine 1.5 Mg Transdermal Patch) 1.5 mg TRDERM Q72H PRN PRN Reason: Nausea/Vomiting Sodium Chloride (Sodium Chloride 0.9% 10 Ml Syringe) 10 ml FLUSH ASDIRECTED PRN PRN Reason: Keep Vein Open Last Admin: 03/06/21 18:52 Dose: 10 ml Documented by: LOULOU Sodium Chloride (Sodium Chloride 0.9% 2.5 Ml Syringe) 2.5 ml FLUSH ASDIRECTED PRN PRN Reason: Keep Vein Open Last Admin: 03/06/21 18:51 Dose: 2.5 ml Documented by: LOULOU - Plan Plan (Free Text/Narrative):: Patient has some right shoulder discomfort most likely due to CO2 irritation of the diaphragm. Encouraged patient to ambulate and use warm towels to area for comfort. She is getting a dose of dilaudid right now. I told patient that in order to be discharged home, she needs to be using only po pain medications. Her vitals are stable and clinic exam is normal. If she tolerates a regular diet at supper, ambulates and does not use any IV pain meds from here out she can be discharged home this evening.
[2021-03-07] MEDS: Ondansetron 4 MG/2 ML SDV IVPUSH PRN (16:45)
--- NOTE | 2021-03-07 22:06 | OR ---
SURGEON: GISELL CABA MD DATE OF PROCEDURE: 03/06/2021 PREOPERATIVE DIAGNOSIS: Acute appendicitis. POSTOPERATIVE DIAGNOSIS: Acute appendicitis. PROCEDURE PERFORMED: Laparoscopic appendectomy. PRIMARY SURGEON: Gisell Caba MD ANESTHESIA: General endotracheal anesthesia. FLUIDS: 1200 mL of crystalloid. ESTIMATED BLOOD LOSS: 5 mL. URINE OUTPUT: 175 mL. FINDINGS: Dilated and inflamed appendix, consistent with acute appendicitis. The appendix had small contained perforation with manipulation during the case. COMPLICATIONS: None. INDICATIONS: The patient is a 30-year-old female who presented to the emergency room with acute appendicitis. I explained the need for a laparoscopic possible open appendectomy. The patient and I discussed the procedure, expected perioperative course, and the risks. She verbalized understanding and wishes to proceed. PROCEDURE IN DETAIL: The patient was brought into the OR and placed on the OR table in the supine position. A time-out was completed verifying the patient's name, age, date of , allergies, and procedure to be performed. General endotracheal anesthesia was induced. The left arm was tucked to the patient's side, and a Still catheter was placed. The abdomen was prepped and draped in the usual standard fashion. I anesthetized an area 2 fingerbreadths below the left subcostal margin, in the midclavicular line, with 0.5% Marcaine plain. An 11 blade was used to make an incision in this area. A 5 mm optical trocar was used to gain entry into the left upper quadrant under direct visualization. All layers of the abdominal wall were visualized upon entry. The abdomen was insufflated. A 5 mm 30-degree scope was inserted, and I inspected the area underneath my initial trocar placement. No damage to surrounding structures was noted. A 5 mm trocar was placed under direct visualization just left and lateral to the umbilicus, and a 12 mm trocar was placed in a similar fashion in the left lower quadrant. The patient was placed into Trendelenburg position and airplaned slightly to the left. The cecum was identified. I did not immediately see the appendix. I rolled the cecum medially and could see the tip of the appendix lying retrocecally. This was grasped and elevated. The appendix was attached to the retroperitoneum with flimsy attachments. These were taken down using blunt dissection with a [place] dissector as well as dissection with a Harmonic scalpel device. Eventually, I was able to take down enough of these attachments to rotate the appendix more anteriorly. The appendiceal mesentery was taken down from distal to proximal using the [place] and Harmonic scalpel device. Once the appendix was clear all the way to the base of the appendix, a photograph was taken. An endoscopic stapling device was brought into the field. I stapled and transected across the base of the appendix. The appendix was then placed in an EndoCatch bag and removed through the 12 mm port site. During my dissection, a small rent was made in the appendix, and a small amount of purulent material was expressed. This was suctioned up immediately and contained. There was no gross spillage of pus within the abdomen. There appeared to be no evidence of an abscess. I reinspected my operative field after the appendix was removed, and the area appeared to be hemostatic. A small amount of irrigation was used locally and suctioned out. The 12 mm trocar site was then removed, and the fascia at the site closed with interrupted 0 Vicryl suture using a Wale-Trish device. The 5 mm trocars were removed under direct visualization. The abdomen was allowed to desufflate. The 12 mm trocar site was closed with interrupted 3-0 Vicryl in the subcutaneous fat layer, and the skin was closed with a running 4-0 Monocryl stitch. The 5 mm trocar sites were closed with interrupted 4-0 Monocryl sutures. Steri-Strips and Tegaderms were applied to the wounds. The patient was extubated and taken to the PACU in stable condition. All counts were complete and correct at the end of the case. KRISTIE / ANNMARIE /[id number]
[2021-03-08] MEDS: Piperacillin/Tazobactam 3.375 GM in Sodium Chloride 0.9% 50 ML IV SCH ×4 (00:18→17:29)
[2021-03-08] MEDS: Acetaminophen/oxyCODONE 325-5 MG Tab PO PRN ×4 (00:25→22:59)
[2021-03-08] MEDS ORDERED: Polyethylene Glycol 3350 Powder 17 GM Packet PO ONE (10:17)
[2021-03-08] MEDS ORDERED: Ketorolac 30 MG/ML SDV IVPUSH ONE (10:17)
--- NOTE | 2021-03-08 10:21 | PCM.SURGPN ---
- General Info Date of Service: 03/08/21 Date of Surgery/Procedure: 03/07/21 POD#: 1 - Review of Systems General: Reports: Appetite (has been able to eat but only small amounts ) HEENT: Reports: No Symptoms Pulmonary: Reports: No Symptoms Cardiovascular: Reports: No Symptoms Gastrointestinal: Reports: Abdominal Pain (along incision sites and RLQ), Constipation, Nausea (when getting up and walking ) Genitourinary: Reports: No Symptoms Skin: Reports: No Symptoms - Patient Data Vitals - Most Recent: Last Vital Signs Temp 36.8 C 03/08/21 08:00 Pulse 85 03/08/21 08:00 Resp 16 03/08/21 08:00 BP 98/65 03/08/21 08:00 Pulse Ox 98 03/08/21 08:00 Weight - Most Recent: 91.626 kg I&O - Last 24 Hours: Intake & Output 03/07/21 03/08/21 03/08/21 22:59 06:59 14:59 Intake Total 800 1400 Output Total 1100 1600 Balance -300 -200 Med Orders - Current: Current Medications Albuterol (Albuterol 0.083% 2.5 Mg/3 Ml Neb Soln) 2.5 mg NEB ONETIME PRN PRN Reason: Wheezing Diphenhydramine HCl (Diphenhydramine 50 Mg/Ml Sdv) 25 mg IVPUSH Q6H PRN PRN Reason: Itching Droperidol (Droperidol 5 Mg/2 Ml Sdv) 0.625 mg IVPUSH ONETIME PRN PRN Reason: Nausea/Vomiting Fentanyl (Fentanyl 100 Mcg/2 Ml Sdv) 50 mcg IVPUSH Q5M PRN PRN Reason: Pain (mild 1-3) Hydromorphone HCl (Hydromorphone 1 Mg/Ml Syringe) 0.5 mg IVPUSH Q1H PRN PRN Reason: Pain Last Admin: 03/07/21 16:00 Dose: 0.5 mg Documented by: Hydromorphone HCl (Hydromorphone 1 Mg/Ml Syringe) 1 mg IVPUSH Q10M PRN PRN Reason: Pain (moderate 4-6) Sodium Chloride (Normal Saline) 1,000 mls @ 150 mls/hr IV ASDIRECTED [facility] Last Admin: 03/06/21 18:51 Dose: 150 mls/hr Documented by: Acetaminophen 1,000 mg/ Premix 100 mls @ 400 mls/hr IV Q6H PRN PRN Reason: Pain Piperacillin Sod/Tazobactam (Sod 3.375 gm/ Sodium Chloride) 50 mls @ 100 mls/hr IV Q6H [facility] Last Admin: 03/08/21 05:19 Dose: 100 mls/hr Documented by: Metoclopramide HCl (Metoclopramide 10 Mg/2 Ml Sdv) 10 mg IVPUSH ONETIME PRN PRN Reason: Nausea/Vomiting Naloxone HCl (Naloxone 0.4 Mg/Ml Sdv) 0.1 mg IVPUSH ASDIRECTED PRN PRN Reason: Respiratory Depression Ondansetron HCl (Ondansetron 4 Mg/2 Ml Sdv) 4 mg IVPUSH Q6H PRN PRN Reason: Nausea/Vomiting Last Admin: 03/07/21 16:45 Dose: 4 mg Documented by: Ondansetron HCl (Ondansetron 4 Mg/2 Ml Sdv) 4 mg IVPUSH ONETIME PRN PRN Reason: Nausea/Vomiting Oxycodone/Acetaminophen (Acetaminophen/Oxycodone 325-5 Mg Tab) 2 tab PO Q4H PRN PRN Reason: Pain (moderate 4-6) Last Admin: 03/08/21 07:36 Dose: 2 tab Documented by: Scopolamine (Scopolamine 1.5 Mg Transdermal Patch) 1.5 mg TRDERM Q72H PRN PRN Reason: Nausea/Vomiting Sodium Chloride (Sodium Chloride 0.9% 10 Ml Syringe) 10 ml FLUSH ASDIRECTED PRN PRN Reason: Keep Vein Open Last Admin: 03/06/21 18:52 Dose: 10 ml Documented by: Sodium Chloride (Sodium Chloride 0.9% 2.5 Ml Syringe) 2.5 ml FLUSH ASDIRECTED PRN PRN Reason: Keep Vein Open Last Admin: 03/06/21 18:51 Dose: 2.5 ml Documented by: Discontinued Medications Bupivacaine HCl (Bupivacaine 0.5% 30 Ml Sdv) Confirm Administered Dose 30 ml .ROUTE .STK-MED ONE Stop: 03/07/21 10:12 Dexamethasone (Dexamethasone 4 Mg/Ml 5 Ml Mdv) Confirm Administered Dose 20 mg .ROUTE .STK-MED ONE Stop: 03/07/21 08:03 Dexmedetomidine HCl (Dexmedetomidine 200 Mcg/2 Ml Sdv) Confirm Administered Dose 200 mcg .ROUTE .STK-MED ONE Stop: 03/07/21 08:05 Esmolol HCl (Esmolol 100 Mg/10 Ml Sdv) Confirm Administered Dose 100 mg .ROUTE .STK-MED ONE Stop: 03/07/21 08:03 Fentanyl (Fentanyl 100 Mcg/2 Ml Sdv) Confirm Administered Dose 100 mcg .ROUTE .STK-MED ONE Stop: 03/07/21 08:04 Piperacillin Sod/Tazobactam (Sod 4.5 gm/ Sodium Chloride) 100 mls @ 100 mls/hr IV ONETIME ONE Stop: 03/06/21 21:14 Last Admin: 03/06/21 20:55 Dose: 100 mls/hr Documented by: Lactated Ringer's (Ringers, Lactated) 1,000 mls @ 150 mls/hr IV ASDIRECTED [facility] Last Admin: 03/07/21 05:26 Dose: 150 mls/hr Documented by: Piperacillin Sod/Tazobactam (Sod 3.375 gm/ Sodium Chloride) 50 mls @ 100 mls/hr IV Q6H [facility] Last Admin: 03/07/21 04:33 Dose: 100 mls/hr Documented by: Sterile Water (Sterile Water For Injection) Confirm Administered Dose 20 mls @ as directed .ROUTE .STK-MED ONE Stop: 03/07/21 08:05 Iopamidol (Iopamidol 755 Mg/Ml 500 Ml Multipack Bottle) 100 ml IVPUSH ONETIME STA Stop: 03/06/21 19:11 Last Admin: 03/06/21 19:11 Dose: 100 ml Documented by: Ketorolac Tromethamine (Ketorolac 30 Mg/Ml Sdv) 15 mg IVPUSH ONETIME ONE Stop: 03/06/21 18:15 Last Admin: 03/06/21 18:55 Dose: 15 mg Documented by: Ketorolac Tromethamine (Ketorolac 30 Mg/Ml Sdv) Confirm Administered Dose 30 mg .ROUTE .STK-MED ONE Stop: 03/07/21 09:41 Lidocaine (Lidocaine 2% 5 Ml Sdv) Confirm Administered Dose 5 ml .ROUTE .STK-MED ONE Stop: 03/07/21 08:03 Midazolam HCl (Midazolam 1 Mg/Ml 2 Ml Sdv) Confirm Administered Dose 2 mg .ROUTE .STK-MED ONE Stop: 03/07/21 08:04 Octyl Cyanoacrylate (Octyl 2-Cyanoacrylate 1 Tube) Confirm Administered Dose 1 applic .ROUTE .STK-MED ONE Stop: 03/07/21 08:19 Ondansetron HCl (Ondansetron 4 Mg/2 Ml Sdv) 4 mg IVPUSH ONETIME ONE Stop: 03/06/21 18:15 Last Admin: 03/06/21 18:55 Dose: 4 mg Documented by: Ondansetron HCl (Ondansetron 4 Mg/2 Ml Sdv) Confirm Administered Dose 4 mg .ROUTE .STK-MED ONE Stop: 03/07/21 09:41 Propofol (Propofol 200 Mg/20 Ml Sdv) Confirm Administered Dose 200 mg .ROUTE .STK-MED ONE Stop: 03/07/21 08:04 Rocuronium [place] (Rocuronium [place] 50 Mg/5 Ml Syringe) Confirm Administered Dose 50 mg .ROUTE .STK-MED ONE Stop: 03/07/21 08:03 Sugammadex Sodium (Sugammadex Sodium 200 Mg/2 Ml Vial) Confirm Administered Dose 200 mg .ROUTE .STK-MED ONE Stop: 03/07/21 09:41 - Exam Wound/Incisions: Healing Well, Dressing Dry and Intact General: Alert, Oriented, Cooperative Lungs: Normal Respiratory Effort Cardiovascular: Regular Rate GI/Abdominal Exam: Soft, Non-Tender, No Distention, No Mass Skin: Warm, Dry, Intact Psy/Mental Status: Alert, Normal Affect Sepsis Event Note - Evaluation Sepsis Screening Result: No Definite Risk - Focused Exam Vital Signs: Vital Signs Temp Pulse Resp BP Pulse Ox 03/08/21 08:00 36.8 C 85 16 98/65 98 03/08/21 04:00 36.2 C 83 14 95/47 L 97 03/08/21 00:00 36.5 C 100 16 103/50 L 96 - Problem List & Annotations (1) Acute appendicitis SNOMED Code(s): 09313670 Code(s): K35.80 - UNSPECIFIED ACUTE APPENDICITIS Status: Acute Current Visit: Yes Qualifiers: Acute appendicitis type: with localized peritonitis Appendicitis perforation presence: without perforation Appendicitis abscess presence: without abscess - Problem List Review Problem List Initiated/Reviewed/Updated: Yes - My Orders Last 24 Hours: Active Orders 24 hr Category Date Time Status Intake and Output [RC] Q12H Care 03/07/21 10:16 Active Oxygen Therapy [RC] PRN Care 03/07/21 10:16 Active RT Incentive Spirometry [RC] Q1HWA Care 03/07/21 10:15 Active Up ad Jolene [RC] ASDIRECTED Care 03/07/21 10:15 Active Vital Signs [RC] Q4H Care 03/07/21 10:16 Active Regular Diet [DIET] Diet 03/07/21 Lunch Active Acetaminophen/oxyCODONE [Percocet 325-5 MG] Med 03/07/21 10:15 Active 2 tab PO Q4H PRN Ketorolac [Toradol] Med 03/08/21 10:17 Once 30 mg IVPUSH ONETIME ONE Piperacillin/Tazobactam [Piperacil-Tazobact] 3.375 gm Med 03/07/21 11:00 Active Sodium Chloride 0.9% [Normal Saline AdvBag] 50 ml IV Q6H polyethylene glycoL 3350 [MiraLAX] Med 03/08/21 10:17 Once 17 gm PO ONETIME ONE Resuscitation Status Routine Resus Stat 03/07/21 10:15 Ordered Medication Orders Albuterol (Albuterol 0.083% 2.5 Mg/3 Ml Neb Soln) 2.5 mg NEB ONETIME PRN PRN Reason: Wheezing Diphenhydramine HCl (Diphenhydramine 50 Mg/Ml Sdv) 25 mg IVPUSH Q6H PRN PRN Reason: Itching Droperidol (Droperidol 5 Mg/2 Ml Sdv) 0.625 mg IVPUSH ONETIME PRN PRN Reason: Nausea/Vomiting Fentanyl (Fentanyl 100 Mcg/2 Ml Sdv) 50 mcg IVPUSH Q5M PRN PRN Reason: Pain (mild 1-3) Hydromorphone HCl (Hydromorphone 1 Mg/Ml Syringe) 0.5 mg IVPUSH Q1H PRN PRN Reason: Pain Last Admin: 03/07/21 16:00 Dose: 0.5 mg Documented by: Admin: 03/07/21 04:27 Dose: 0.5 mg Documented by: FRANKLIN Hydromorphone HCl (Hydromorphone 1 Mg/Ml Syringe) 1 mg IVPUSH Q10M PRN PRN Reason: Pain (moderate 4-6) Sodium Chloride (Normal Saline) 1,000 mls @ 150 mls/hr IV ASDIRECTED [facility] Last Admin: 03/06/21 18:51 Dose: 150 mls/hr Documented by: LOULOU Acetaminophen 1,000 mg/ Premix 100 mls @ 400 mls/hr IV Q6H PRN PRN Reason: Pain Piperacillin Sod/Tazobactam (Sod 3.375 gm/ Sodium Chloride) 50 mls @ 100 mls/hr IV Q6H [facility] Last Admin: 03/08/21 05:19 Dose: 100 mls/hr Documented by: Infusion: 03/08/21 00:48 Dose: 100 mls/hr Documented by: Admin: 03/08/21 00:18 Dose: 100 mls/hr Documented by: Infusion: 03/07/21 17:51 Dose: 100 mls/hr Documented by: Admin: 03/07/21 17:21 Dose: 100 mls/hr Documented by: Infusion: 03/07/21 11:43 Dose: 100 mls/hr Documented by: Admin: 03/07/21 11:13 Dose: 100 mls/hr Documented by: LEROY Metoclopramide HCl (Metoclopramide 10 Mg/2 Ml Sdv) 10 mg IVPUSH ONETIME PRN PRN Reason: Nausea/Vomiting Naloxone HCl (Naloxone 0.4 Mg/Ml Sdv) 0.1 mg IVPUSH ASDIRECTED PRN PRN Reason: Respiratory Depression Ondansetron HCl (Ondansetron 4 Mg/2 Ml Sdv) 4 mg IVPUSH Q6H PRN PRN Reason: Nausea/Vomiting Last Admin: 03/07/21 16:45 Dose: 4 mg Documented by: LEROY Ondansetron HCl (Ondansetron 4 Mg/2 Ml Sdv) 4 mg IVPUSH ONETIME PRN PRN Reason: Nausea/Vomiting Oxycodone/Acetaminophen (Acetaminophen/Oxycodone 325-5 Mg Tab) 2 tab PO Q4H PRN PRN Reason: Pain (moderate 4-6) Last Admin: 03/08/21 07:36 Dose: 2 tab Documented by: Admin: 03/08/21 00:25 Dose: 2 tab Documented by: Admin: 03/07/21 18:41 Dose: 2 tab Documented by: Admin: 03/07/21 12:55 Dose: 2 tab Documented by: LEROY Scopolamine (Scopolamine 1.5 Mg Transdermal Patch) 1.5 mg TRDERM Q72H PRN PRN Reason: Nausea/Vomiting Sodium Chloride (Sodium Chloride 0.9% 10 Ml Syringe) 10 ml FLUSH ASDIRECTED PRN PRN Reason: Keep Vein Open Last Admin: 03/06/21 18:52 Dose: 10 ml Documented by: LOULOU Sodium Chloride (Sodium Chloride 0.9% 2.5 Ml Syringe) 2.5 ml FLUSH ASDIRECTED PRN PRN Reason: Keep Vein Open Last Admin: 03/06/21 18:51 Dose: 2.5 ml Documented by: LOULOU - Plan Plan (Free Text/Narrative):: 1) Will give patient a dose of toradol this am. Encouraged her to be out of bed as this will help with incisional pain and stiffness. 2) Miralax this am. I explained that due to narcotics, surgery and appendicitis, she will have decreased bowel function. By drinking water, ambulating and with the help of bowel meds we can promote good bowel regularity. 3) I explained to the patient that her appetite will be decreased. I encouraged fluid intake and small frequent meals. If patient is feeling well this afternoon she can be discharged home.
[2021-03-08] MEDS: Ondansetron 4 MG/2 ML SDV IVPUSH PRN ×2 (14:12→23:00)
[2021-03-08] MEDS: Metoclopramide 10 MG Tab PO SCH ×2 (14:52→20:29)
[2021-03-08] MEDS ORDERED: Ketorolac 30 MG/ML SDV IVPUSH SCH (18:00)
[2021-03-08 20:28] VITALS: BP 102/44; PULSE 88
--- NOTE | 2021-03-11 10:15 | PCM.DCSUM1 ---
Discharge Summary - Hospital Course Free Text/Narrative:: Patient is a 40-year-old female who presented with acute appendicitis. She was taken to the OR and underwent a laparoscopic appendectomy. The appendix was retrocecal and had a fair amount of retrocecal attachments requiring extra dissection. Postoperatively she was stable. Overall however the patient complained of nausea and abdominal pain. She was monitored closely overnight. Her vital signs were stable. The next day the patient continued to have nausea. By the end of postop day 1 she was passing gas. She was started on scheduled Reglan and a scopolamine patch, and had as needed Zofran. She was given Toradol which controlled her pain better overall. By the end of the day she felt stable to discharge home. - Discharge Data Discharge Date: 03/08/21 Discharge Disposition: Home, Self-Care 01 Condition: Good - Referral to Home Health Primary Care Physician: Leena Cam, DO - Discharge Diagnosis/Problem(s) (1) Acute appendicitis SNOMED Code(s): 35270093 ICD Code: K35.80 - UNSPECIFIED ACUTE APPENDICITIS Status: Acute Qualifiers: Acute appendicitis type: with localized peritonitis Appendicitis perforation presence: without perforation Appendicitis abscess presence: without abscess - Patient Summary/Data Operative Procedure(s) Performed: Laparoscopic appendectomy - Patient Instructions Diet: Regular Diet as Tolerated Activity: No Lifting Over 20 Pounds, Rest and Relax Today Driving: Do Not Drive Showering/Bathing: No Showering, No Tub Bathing/Swimming Wound/Incision Care: Keep Operative Site/Wound Site Clean and Dry Notify Provider of: Fever, Increased Pain, Swelling and Redness, Drainage, Nausea and/or Vomiting - Discharge Plan *PRESCRIPTION DRUG MONITORING PROGRAM REVIEWED*: Not Applicable *COPY OF PRESCRIPTION DRUG MONITORING REPORT IN PATIENT HEDY: Not Applicable Prescriptions/Med Rec: Ketorolac [Toradol] 10 mg PO Q6H PRN #20 tab PRN Reason: Abdominal Pain Ondansetron [Zofran ODT] 4 mg PO Q6H PRN #30 tab.dis PRN Reason: Nausea Home Medications: Home Meds Vit Calc,Iron,Folic [ Vitamins] 1 tab PO DAILY 11/30/17 [History] Montelukast [Singulair] 10 mg PO DAILY 03/06/21 [History] Phentermine HCl 37.5 mg PO DAILY 03/06/21 [History] buPROPion [buPROPion XL] 150 mg PO BEDTIME 03/06/21 [History] Ketorolac [Toradol] 10 mg PO Q6H PRN #20 tab 03/08/21 [Rx] Ondansetron [Zofran ODT] 4 mg PO Q6H PRN #30 tab.dis 03/08/21 [Rx] Patient Handouts: Laparoscopic Appendectomy, Adult, Care After, [id number], Appendicitis, Adult, [id number] Referrals: Gisell Caba MD [Physician] - 03/22/21 10:00 am - Discharge Summary/Plan Comment DC Time >30 min.: Yes (31) Total # of Minutes for Discharge Time: 31 - General Info Functional Status: Reports: Pain Controlled, Tolerating Diet - Review of Systems General: Reports: No Symptoms HEENT: Reports: No Symptoms Pulmonary: Reports: No Symptoms Cardiovascular: Reports: No Symptoms Gastrointestinal: Reports: No Symptoms Musculoskeletal: Reports: No Symptoms - Patient Data Vitals - Most Recent: Last Vital Signs Temp 36.6 C 03/08/21 20:27 Pulse 88 03/08/21 20:27 Resp 16 03/08/21 20:27 BP 102/44 L 03/08/21 20:27 Pulse Ox 96 03/08/21 20:27 Weight - Most Recent: 91.626 kg Med Orders - Current: Current Medications Discontinued Medications Albuterol (Albuterol 0.083% 2.5 Mg/3 Ml Neb Soln) 2.5 mg NEB ONETIME PRN PRN Reason: Wheezing Bupivacaine HCl (Bupivacaine 0.5% 30 Ml Sdv) Confirm Administered Dose 30 ml .ROUTE .STK-MED ONE Stop: 03/07/21 10:12 Dexamethasone (Dexamethasone 4 Mg/Ml 5 Ml Mdv) Confirm Administered Dose 20 mg .ROUTE .STK-MED ONE Stop: 03/07/21 08:03 Dexmedetomidine HCl (Dexmedetomidine 200 Mcg/2 Ml Sdv) Confirm Administered Dose 200 mcg .ROUTE .STK-MED ONE Stop: 03/07/21 08:05 Diphenhydramine HCl (Diphenhydramine 50 Mg/Ml Sdv) 25 mg IVPUSH Q6H PRN PRN Reason: Itching Droperidol (Droperidol 5 Mg/2 Ml Sdv) 0.625 mg IVPUSH ONETIME PRN PRN Reason: Nausea/Vomiting Esmolol HCl (Esmolol 100 Mg/10 Ml Sdv) Confirm Administered Dose 100 mg .ROUTE .STK-MED ONE Stop: 03/07/21 08:03 Fentanyl (Fentanyl 100 Mcg/2 Ml Sdv) 50 mcg IVPUSH Q5M PRN PRN Reason: Pain (mild 1-3) Fentanyl (Fentanyl 100 Mcg/2 Ml Sdv) Confirm Administered Dose 100 mcg .ROUTE .STK-MED ONE Stop: 03/07/21 08:04 Hydromorphone HCl (Hydromorphone 1 Mg/Ml Syringe) 0.5 mg IVPUSH Q1H PRN PRN Reason: Pain Last Admin: 03/07/21 16:00 Dose: 0.5 mg Documented by: Hydromorphone HCl (Hydromorphone 1 Mg/Ml Syringe) 1 mg IVPUSH Q10M PRN PRN Reason: Pain (moderate 4-6) Sodium Chloride (Normal Saline) 1,000 mls @ 150 mls/hr IV ASDIRECTED [facility] Last Admin: 03/06/21 18:51 Dose: 150 mls/hr Documented by: Piperacillin Sod/Tazobactam (Sod 4.5 gm/ Sodium Chloride) 100 mls @ 100 mls/hr IV ONETIME ONE Stop: 03/06/21 21:14 Last Admin: 03/06/21 20:55 Dose: 100 mls/hr Documented by: Lactated Ringer's (Ringers, Lactated) 1,000 mls @ 150 mls/hr IV ASDIRECTED [facility] Last Admin: 03/07/21 05:26 Dose: 150 mls/hr Documented by: Piperacillin Sod/Tazobactam (Sod 3.375 gm/ Sodium Chloride) 50 mls @ 100 mls/hr IV Q6H [facility] Last Admin: 03/07/21 04:33 Dose: 100 mls/hr Documented by: Acetaminophen 1,000 mg/ Premix 100 mls @ 400 mls/hr IV Q6H PRN PRN Reason: Pain Sterile Water (Sterile Water For Injection) Confirm Administered Dose 20 mls @ as directed .ROUTE .STK-MED ONE Stop: 03/07/21 08:05 Piperacillin Sod/Tazobactam (Sod 3.375 gm/ Sodium Chloride) 50 mls @ 100 mls/hr IV Q6H [facility] Last Admin: 03/08/21 05:19 Dose: 100 mls/hr Documented by: Piperacillin Sod/Tazobactam (Sod 3.375 gm/ Sodium Chloride) 50 mls @ 100 mls/hr IV Q6H [facility] Last Admin: 03/08/21 17:29 Dose: 100 mls/hr Documented by: Iopamidol (Iopamidol 755 Mg/Ml 500 Ml Multipack Bottle) 100 ml IVPUSH ONETIME STA Stop: 03/06/21 19:11 Last Admin: 03/06/21 19:11 Dose: 100 ml Documented by: Ketorolac Tromethamine (Ketorolac 30 Mg/Ml Sdv) 15 mg IVPUSH ONETIME ONE Stop: 03/06/21 18:15 Last Admin: 03/06/21 18:55 Dose: 15 mg Documented by: Ketorolac Tromethamine (Ketorolac 30 Mg/Ml Sdv) Confirm Administered Dose 30 mg .ROUTE .STK-MED ONE Stop: 03/07/21 09:41 Ketorolac Tromethamine (Ketorolac 30 Mg/Ml Sdv) 30 mg IVPUSH ONETIME ONE Stop: 03/08/21 10:18 Last Admin: 03/08/21 10:30 Dose: 30 mg Documented by: Ketorolac Tromethamine (Ketorolac 30 Mg/Ml Sdv) 30 mg IVPUSH Q6H [facility] Stop: 03/13/21 18:01 Last Admin: 03/08/21 17:38 Dose: 30 mg Documented by: Lidocaine (Lidocaine 2% 5 Ml Sdv) Confirm Administered Dose 5 ml .ROUTE .STK-MED ONE Stop: 03/07/21 08:03 Metoclopramide HCl (Metoclopramide 10 Mg/2 Ml Sdv) 10 mg IVPUSH ONETIME PRN PRN Reason: Nausea/Vomiting Metoclopramide HCl (Metoclopramide 10 Mg Tab) 10 mg PO Q6H [facility] Last Admin: 03/08/21 20:29 Dose: 10 mg Documented by: Midazolam HCl (Midazolam 1 Mg/Ml 2 Ml Sdv) Confirm Administered Dose 2 mg .ROUTE .STK-MED ONE Stop: 03/07/21 08:04 Naloxone HCl (Naloxone 0.4 Mg/Ml Sdv) 0.1 mg IVPUSH ASDIRECTED PRN PRN Reason: Respiratory Depression Octyl Cyanoacrylate (Octyl 2-Cyanoacrylate 1 Tube) Confirm Administered Dose 1 applic .ROUTE .STK-MED ONE Stop: 03/07/21 08:19 Ondansetron HCl (Ondansetron 4 Mg/2 Ml Sdv) 4 mg IVPUSH ONETIME ONE Stop: 03/06/21 18:15 Last Admin: 03/06/21 18:55 Dose: 4 mg Documented by: Ondansetron HCl (Ondansetron 4 Mg/2 Ml Sdv) 4 mg IVPUSH Q6H PRN PRN Reason: Nausea/Vomiting Last Admin: 03/08/21 23:00 Dose: 4 mg Documented by: Ondansetron HCl (Ondansetron 4 Mg/2 Ml Sdv) 4 mg IVPUSH ONETIME PRN PRN Reason: Nausea/Vomiting Ondansetron HCl (Ondansetron 4 Mg/2 Ml Sdv) Confirm Administered Dose 4 mg .ROUTE .STK-MED ONE Stop: 03/07/21 09:41 Oxycodone/Acetaminophen (Acetaminophen/Oxycodone 325-5 Mg Tab) 2 tab PO Q4H PRN PRN Reason: Pain (moderate 4-6) Last Admin: 03/08/21 22:59 Dose: 2 tab Documented by: Polyethylene Glycol (Polyethylene Glycol 3350 Powder 17 Gm Packet) 17 gm PO ONETIME ONE Stop: 03/08/21 10:18 Last Admin: 03/08/21 10:29 Dose: 17 gm Documented by: Propofol (Propofol 200 Mg/20 Ml Sdv) Confirm Administered Dose 200 mg .ROUTE .STK-MED ONE Stop: 03/07/21 08:04 Rocuronium [place] (Rocuronium [place] 50 Mg/5 Ml Syringe) Confirm Administered Dose 50 mg .ROUTE .STK-MED ONE Stop: 03/07/21 08:03 Scopolamine (Scopolamine 1.5 Mg Transdermal Patch) 1.5 mg TRDERM Q72H PRN PRN Reason: Nausea/Vomiting Last Admin: 03/08/21 14:53 Dose: 1.5 mg Documented by: Sodium Chloride (Sodium Chloride 0.9% 10 Ml Syringe) 10 ml FLUSH ASDIRECTED PRN PRN Reason: Keep Vein Open Last Admin: 03/06/21 18:52 Dose: 10 ml Documented by: Sodium Chloride (Sodium Chloride 0.9% 2.5 Ml Syringe) 2.5 ml FLUSH ASDIRECTED PRN PRN Reason: Keep Vein Open Last Admin: 03/06/21 18:51 Dose: 2.5 ml Documented by: Sugammadex Sodium (Sugammadex Sodium 200 Mg/2 Ml Vial) Confirm Administered Dose 200 mg .ROUTE .[facility]-MED ONE Stop: 03/07/21 09:41 - Exam General: Reports: Alert, Oriented, Cooperative Lungs: Reports: Normal Respiratory Effort Cardiovascular: Reports: Regular Rate GI/Abdominal Exam: Soft, Non-Tender, No Distention Skin: Reports: Warm, Dry, Intact Wound/Incisions: Reports: Healing Well
== END 2021-03-08 23:25 | disposition home or self-care (01) ==
LOC: MW.ED 16:09 → MW.MS 20:15
PROVIDERS: ADMIT Surgery; ATTEND Surgery
DX: K35.30 Acute appendicitis with localized peritonitis, without perforation or gangrene (principal); E66.9 Obesity, unspecified; K21.9 Gastro-esophageal reflux disease without esophagitis; Z01.812 Encounter for preprocedural laboratory examination; Z79.899 Other long term (current) drug therapy; Z20.822 Contact with and (suspected) exposure to COVID-19
CPT/HCPCS: 00840; 36415; 74177; 74177-26; 80053; 81001; 81025; 83690; 85025; 96365; 96366; 96375; 96376; 99285-25; A9270-GY; G0378; J1100; J1170; J1885; J2250; J2405; J2543; J2704; J3010; J3490; J7030; J7120; Q9967; U0002